=== PATIENT | female | born 1955 | race Caucasian/White ===

== ENCOUNTER → 2016-09-01 | Outpatient (CLI) | payer BC ==
[~2016-09-01] MED LIST: ASPI-435 PO; METO25TA3 PO
[2016-09-01 12:15] LABS: CHOLESTEROL/HDL RATIO 3.6
== END | disposition home or self-care (01) ==
LOC: C.LAB 10:41
PROVIDERS: ATTEND Internal Medicine Cardiovascular Disease
DX: E78.5 Hyperlipidemia, unspecified (principal)

== ENCOUNTER → 2016-11-06 | Outpatient (CLI) | payer BC ==
--- NOTE | 2016-11-06 16:21 | MAMMOGRAPHY REPORT ---
BILATERAL DIGITAL SCREENING MAMMOGRAM WITH CAD: 11/06/2016 CLINICAL HISTORY: Routine screening. Patient has no complaints. TECHNIQUE: Current study was also evaluated with a Computer Aided Detection (CAD) system. Bilateral CC and MLO views were obtained. COMPARISON: Comparison is made to exams dated: 10/22/2015 mammogram, 10/20/2014 mammogram, 10/19/2013 m ammogram, 10/18/2012 mammogram, 10/14/2011 mammogram, and 11/02/2009 mammogram - [facility]. BREAST COMPOSITION: The tissue of both breasts is heterogeneously dense, which may obscure small mas ses. FINDINGS: No suspicious masses, calcifications, or areas of architectural distortion are noted in ei ther breast. There has been no significant interval change compared to prior exams. A biopsy marker clip is again noted in the right medial breast. IMPRESSION: ACR BI-RADS CATEGORY 2: BENIGN There is no mammographic evidence of malignancy. A 1 year screening mammogram is recommended. The pa tient will receive written notification of the results. Approximately 10% of breast cancers are not detected with mammography. A negative mammographic report should not delay biopsy if a clinically suggestive mass is present. Amanda Issa M.D. /:11/06/2016 14:49:52 Car Worker: Haley OROZCOR, M, [facility] letter sent: Normal 1/2 BI-RADS Code: ACR BI-RADS Category 2: Benign
== END | disposition home or self-care (01) ==
LOC: C.MAMM 14:10
PROVIDERS: ATTEND Family Medicine
DX: Z12.31 Encounter for screening mammogram for malignant neoplasm of breast (principal)

== ENCOUNTER → 2017-10-15 | Outpatient (CLI) | payer OTHER ==
[2017-10-15 10:54] LABS: BLOOD UREA NITROGEN 20 mg/dl (7-18); CREATININE 0.87 mg/dl (0.60-1.20); GLUCOSE 93 mg/dl (70-99)
[2017-10-15 10:55] LABS: ALBUMIN 4.3 gm/dl (3.4-5.0); ALKALINE PHOSPHATASE 112 U/L (45-117); ALT/SGPT 39 U/L (12-78); AST/SGOT 21 U/L (15-37); CARBON DIOXIDE 30 mmol/L (21-32); CHOLESTEROL 201 mg/dl (0-200); LDL CHOLESTEROL CALCULATED 126 mg/dl; POTASSIUM 3.8 mmol/L (3.5-5.1); SODIUM 141 mmol/L (136-145); TOTAL PROTEIN 7.9 gm/dl (6.4-8.2)
== END | disposition home or self-care (01) ==
LOC: C.LAB1850 09:41
PROVIDERS: ATTEND Physician Assistant
DX: I49.3 Ventricular premature depolarization (principal); I10 Essential (primary) hypertension; E78.5 Hyperlipidemia, unspecified

== ENCOUNTER 2021-11-15 19:08 | Inpatient (IN) ==
[2021-11-15 19:43] LABS: Basophils # (auto) 0.08 K/uL (0-0.2); Basophils % (auto) 0.7 %; Eosinophils # (auto) 0.08 K/uL (0-0.50); Eosinophils % (auto) 0.7 %; Hematocrit (blood only) 46.7 % (34.1-44.9); Hemoglobin 15.2 g/dl (12.0-16.0); Immature Granulocytes # (auto) 0.03 K/uL (0.00-0.02); Immature Granulocytes % (auto) 0.2 %; Lymphocytes # (auto) 1.53 K/uL (1.2-3.4); Lymphocytes % (auto) 12.6 %; Mean Corpuscular Hemoglobin 29.6 pg (25.0-34.0); Mean Corpuscular Hgb Conc 32.5 g/dL (32.0-36.0); Mean Corpuscular Volume 90.9 fL (80.0-100.0); Mean Platelet Volume 10.3 fL (9.4-12.3); Monocytes # (auto) 0.84 K/uL (0.24-0.82); Monocytes % (auto) 6.9 %; Neutrophils # (auto) 9.57 K/uL (1.4-6.5); Neutrophils % (auto) 78.9 %; Platelet Count 586 K/uL (130-400); RDW Coefficient of Variation 13.3 % (11.5-14.5); RDW Standard Deviation 44.4 fL (36.4-46.3); Red Blood Count 5.14 M/uL (3.93-5.22); White Blood Count 12.13 K/ul (4.8-10.8)
[2021-11-15 20:04] LABS: BUN Creatinine Ratio 25.6 (10-20); Creatinine Clr Calc Pharmacy 67.1 ml/min; Est GFR (African American) 90.5 ml/min; Est GFR (Non-African American) 78.1 ml/min; Potassium 4.3 mmol/L (3.5-5.1)
[2021-11-15 20:24] LABS: Appearance Urine Cloudy (Clear); Bacteria Urine Automated Negative (Negative); Bilirubin Urine Negative (Negative); Blood Urine Trace (Negative); Cast Urine Automated 0 /lpf (0-5); Color Urine Yellow; Epithelial Cell Urine Auto 0-5 /lpf (0-5); Glucose Urine UA Negative (Negative); Ketones Urine Negative (Negative); Leukocyte Esterase Urine Negative (Negative); Nitrite Urine Negative (Negative); Protein Urine Negative (Negative); Specific Gravity Urine 1.016 (1.000-1.030); Urobilinogen Urine Negative (Negative)
[2021-11-15] MEDS ORDERED: SODIUM CHLORIDE 0.9% 1000ML 1,000 ML IV ONE (20:35)
--- NOTE | 2021-11-15 20:43 | Emergency Department Note ---
History of Present Illness General Chief complaint: Abdominal Pain Stated complaint: ABDOMINAL PAIN Time Seen by Provider: 11/15/21 20:20 Source: patient Mode of arrival: ambulatory Limitations: no limitations History of Present Illness Maximum Pain Intensity: 6 This patient is a 58-year-old female who comes in saying she is pretty sure is having a gallbladder attack. She had an episode like this in September 2020 and had gallbladder sludge. She had an episode again last week and had 1 today around 3:00 she is feeling better she has pain in her right upper quadrant it hurts if she moves no pleurisy no chest pain or shortness of breath no trauma or injury she has some associated nausea. No fever. No rash. Diet Home Medications Medication Instructions Recorded Confirmed Type aspirin 81 mg chewable tablet 81 mg PO DAILY 11/16/21 11/16/21 History cholecalciferol (vitamin D3) 50 50 mcg PO DAILY 11/16/21 11/16/21 History mcg (2,000 unit) tablet (Vitamin D3) hydrochlorothiazide 12.5 mg capsule 12.5 mg PO Q OTHER DAY 11/16/21 11/16/21 History ibandronate 150 mg tablet 150 mg PO MO 11/16/21 11/16/21 History lisinopril 2.5 mg tablet 2.5 mg PO DAILY 11/16/21 11/16/21 History metoprolol succinate 25 mg 37.5 mg PO DAILY 11/16/21 11/16/21 History tablet,extended release 24 hr multivitamin 1 tab PO DAILY 11/16/21 11/16/21 History Allergies Allergy/AdvReac Type Severity Reaction Status Date / Time No Known Allergies Allergy Unverified 11/16/21 00:19 Past Med/Surg History Social History Smoking Status: Never smoker Preferred Language: Uzbek Feels Safe at Home: Yes Immunizations: Past med history Hypertension Allergiesdairy. No known drug allergies. Social historydoes not smoke or drink or use drugs Review of Systems A total of 10 systems reviewed and were otherwise negative Physical Exam Vital Signs Vital Signs - 24 hr 11/15/21 19:18 11/15/21 20:18 11/15/21 23:00 Temperature 36.5 C Temperature Source Temporal Artery Scan Pulse Rate 74 Pulse Rate [Apical] 70 60 Pulse Rhythm [Apical] Regular Respiratory Rate 18 17 15 Respiratory Depth Normal Blood Pressure 181/97 H Blood Pressure [Right Arm] 168/101 H 155/98 H Blood Pressure Mean 125 Blood Pressure Mean [Right Arm] 123 117 Pulse Oximetry 99 97 97 Oxygen Delivery Method Room Air Room Air Sepsis New/Unexplained Change in Mental Status N/A Sepsis Action Taken by Nursing No Action Required 11/16/21 00:38 Temperature Temperature Source Pulse Rate Pulse Rate [Apical] 66 Pulse Rhythm [Apical] Regular Respiratory Rate 16 Respiratory Depth Normal Blood Pressure Blood Pressure [Right Arm] 165/100 H Blood Pressure Mean Blood Pressure Mean [Right Arm] 121 Pulse Oximetry 98 Oxygen Delivery Method Room Air Sepsis New/Unexplained Change in Mental Status Sepsis Action Taken by Nursing General: Well developed well nourished middle aged female who appears in no acute distress, breathing comfortably on room air. Normal speech HEENT: Normal cephalic atraumatic. Pupils are equal round and reactive to light. Extraocular movements are intact. Oropharynx is pink with moist mucous membranes. No swelling of the mouth lips or tongue. Neck: Supple with a midline trachea. No meningeal signs or stiffness, no JVD or bruits. No Stridor. Chest: Clear to auscultation bilaterally. No wheezes or rhonchi. No increased work of breathing. Heart: Regular rate and rhythm without murmurs or gallops. Abdomen: Soft nontender, nondistended without rebound guarding or rigidity. Extremities: No cyanosis clubbing or edema. No calf tenderness or assymetry Spine/Back. Non tender to palpation. No CVA tenderness Skin: Good turgor without rashes. Neurologic exam: Cranial nerves two through 12 are intact. Motor and sensation are intact and symmetrical throughout. Course Administered Medications Discontinued Medications Sodium Chloride (Nss 1000ml) 1,000 mls @ 999 mls/hr IV .Q1H1M ONE Stop: 11/15/21 21:35 Last Infusion: 11/15/21 22:24 Dose: 0 mls/hr Documented By: Admin: 11/15/21 20:46 Dose: 999 mls/hr Documented By: TABATHA Piperacillin Sod/Tazobactam Sod (Zosyn) 4.5 gm in 120 mls @ 240 mls/hr IV NOW ONE Stop: 11/15/21 23:44 Last Infusion: 11/16/21 00:19 Dose: 0 mls/hr Documented By: Admin: 11/15/21 23:40 Dose: 240 mls/hr Documented By: TABATHA Lisinopril (Lisinopril 2.5 Mg Tab) 2.5 mg PO ONE STA Stop: 11/15/21 23:41 Last Admin: 11/16/21 00:38 Dose: 2.5 mg Documented By: TABATHA Medical Decision Making Differential Diagnosis Acute cholecystitis, gallstones, pancreatitis, electrolyte or metabolic abnormality, infection, cardiac disease Medical Records Attestation: I reviewed the patient's medical records. Home Medications Current Medication List: was personally reviewed by me Laboratory Data Attestation: I reviewed the patient's lab results. Result diagrams: 11/15/21 19:35 11/15/21 19:35 Lab Results 11/15/21 11/15/21 11/15/21 Range/Units 19:35 19:35 19:36 WBC 12.13 H (4.8-10.8) K/ul RBC 5.14 (3.93-5.22) M/uL Hgb 15.2 (12.0-16.0) g/dl Hct 46.7 H (34.1-44.9) % MCV 90.9 (80.0-100.0) fL MCH 29.6 (25.0-34.0) pg MCHC 32.5 (32.0-36.0) g/dL RDW Std Deviation 44.4 (36.4-46.3) fL RDW Coeff of Robert 13.3 (11.5-14.5) % Plt Count 586 H (130-400) K/uL MPV 10.3 (9.4-12.3) fL Immature Gran % (Auto) 0.2 % Neut % (Auto) 78.9 % Lymph % (Auto) 12.6 % Forrest % (Auto) 6.9 % Eos % (Auto) 0.7 % Baso % (Auto) 0.7 % Neut # (Auto) 9.57 H (1.4-6.5) K/uL Lymph # (Auto) 1.53 (1.2-3.4) K/uL Forrest # (Auto) 0.84 H (0.24-0.82) K/uL Eos # (Auto) 0.08 (0-0.50) K/uL Baso # (Auto) 0.08 (0-0.2) K/uL Immature Gran # (Auto) 0.03 H (0.00-0.02) K/uL Sodium 137 (136-145) mmol/L Potassium 4.3 (3.5-5.1) mmol/L Chloride 101 (98-107) mmol/L Carbon Dioxide 29 (21-32) mmol/L Anion Gap 7 (3-11) BUN 20 (6-23) mg/dl Creatinine 0.78 (0.6-1.2) mg/dl Est Cr Clr Drug Dosing 67.1 ml/min Est GFR ( Amer) 90.5 ml/min Est GFR (Non-Af Amer) 78.1 ml/min BUN/Creatinine Ratio 25.6 H (10-20) Glucose 95 (70-99(Fasting)) mg/dl Calcium 10.0 (8.5-10.1) mg/dl Total Bilirubin 1.6 H (0.2-1.0) mg/dl AST 96 H (13-39) U/L ALT 103 H (7-52) U/L Alkaline Phosphatase 110 H (34-104) U/L Total Protein 7.4 (6.0-8.3) gm/dl Albumin 4.8 (3.4-5.0) gm/dl Globulin 2.6 (2.5-4.0) gm/dl Albumin/Globulin Ratio 1.8 (0.9-2) Lipase 2138 H (11-82) U/L Urine Color Yellow Urine Appearance Cloudy A (Clear) Urine pH 8.0 H (4.5-7.5) Ur Specific [place] 1.016 (1.000-1.030) Urine Protein Negative (Negative) Urine Glucose (UA) Negative (Negative) Urine Ketones Negative (Negative) Urine Blood Trace H (Negative) Urine Nitrite Negative (Negative) Urine Bilirubin Negative (Negative) Urine Urobilinogen Negative (Negative) Ur Leukocyte Esterase Negative (Negative) Urine WBC (Auto) 1-5 (0-5) /hpf Urine RBC (Auto) 5-10 H (0-4) /hpf U Hyaline Cast (Auto) 0 (0-5) /lpf U Epithel Cells (Auto) 0-5 (0-5) /lpf Urine Bacteria (Auto) Negative (Negative) SARS-CoV-2, RNA, NAAT (NEGATIVE) 11/15/21 Range/Units 23:42 WBC (4.8-10.8) K/ul RBC (3.93-5.22) M/uL Hgb (12.0-16.0) g/dl Hct (34.1-44.9) % MCV (80.0-100.0) fL MCH (25.0-34.0) pg MCHC (32.0-36.0) g/dL RDW Std Deviation (36.4-46.3) fL RDW Coeff of Robert (11.5-14.5) % Plt Count (130-400) K/uL MPV (9.4-12.3) fL Immature Gran % (Auto) % Neut % (Auto) % Lymph % (Auto) % Forrest % (Auto) % Eos % (Auto) % Baso % (Auto) % Neut # (Auto) (1.4-6.5) K/uL Lymph # (Auto) (1.2-3.4) K/uL [place] # (Auto) (0.24-0.82) K/uL Eos # (Auto) (0-0.50) K/uL Baso # (Auto) (0-0.2) K/uL Immature Gran # (Auto) (0.00-0.02) K/uL Sodium (136-145) mmol/L Potassium (3.5-5.1) mmol/L Chloride (98-107) mmol/L Carbon Dioxide (21-32) mmol/L Anion Gap (3-11) BUN (6-23) mg/dl Creatinine (0.6-1.2) mg/dl Est Cr Clr Drug Dosing ml/min Est GFR ( Amer) ml/min Est GFR (Non-Af Amer) ml/min BUN/Creatinine Ratio (10-20) Glucose (70-99(Fasting)) mg/dl Calcium (8.5-10.1) mg/dl Total Bilirubin (0.2-1.0) mg/dl AST (13-39) U/L ALT (7-52) U/L Alkaline Phosphatase (34-104) U/L Total Protein (6.0-8.3) gm/dl Albumin (3.4-5.0) gm/dl Globulin (2.5-4.0) gm/dl Albumin/Globulin Ratio (0.9-2) Lipase (11-82) U/L Urine Color Urine Appearance (Clear) Urine pH (4.5-7.5) Ur Specific [place] (1.000-1.030) Urine Protein (Negative) Urine Glucose (UA) (Negative) Urine Ketones (Negative) Urine Blood (Negative) Urine Nitrite (Negative) Urine Bilirubin (Negative) Urine Urobilinogen (Negative) Ur Leukocyte Esterase (Negative) Urine WBC (Auto) (0-5) /hpf Urine RBC (Auto) (0-4) /hpf U Hyaline Cast (Auto) (0-5) /lpf U Epithel Cells (Auto) (0-5) /lpf Urine Bacteria (Auto) (Negative) SARS-CoV-2, RNA, NAAT NEGATIVE (NEGATIVE) Imaging Data Attestation: I personally reviewed and interpreted this imaging study as follows: Radiologist's Impression: Gallbladder Ultrasound 11/15/21 20:35 ULTRASOUND RIGHT UPPER QUADRANT ABDOMEN CLINICAL HISTORY: Right upper quadrant abdominal pain. COMPARISON STUDY: No priors. TECHNIQUE: Real-time, grayscale, and color flow sonography of the right upper quadrant of the abdomen was performed. Images are reviewed in the transverse and longitudinal planes. FINDINGS: Liver: The liver is normal in size and echotexture. There is no intrahepatic biliary ductal dilatation. The main portal vein is patent. Gallbladder: The gallbladder is distended and contains numerous small shadowing gallstones. The gallbladder wall is mildly thickened and edematous measuring up to 4 mm in diameter. No pericholecystic fluid is seen. A sonographic Millan's s ign is reportedly absent. The common bile duct measures up to 0.7 cm in diameter. Pancreas: Visualized portions of the pancreatic head and body are normal in appearance. The splenic vein is patent. Right kidney: Survey images of the right kidney demonstrate normal size and echotexture. There is no hydronephrosis. Subcentimeter cysts are incidentally noted. Ascites: None. IMPRESSION: 1. The gallbladder is distended. The gallbladder wall is mildly thickened and edematous and there are numerous gallstones. A sonographic Millan's sign is reportedly absent, and findings are equivocal for acute cholecystitis which is not excluded. Correlate with clinical and laboratory findings. If there are strong clinical concern for acute cholecystitis a nuclear hepatobiliary scan could be considered for further assessment. 2. The common bile duct is top normal in caliber for age measuring up to 7 mm. 3. No intrahepatic biliary duct dilatation is seen. ACT 112: Negative or not required by law. Electronically signed by: Tristen Beckwith M.D. 11/15/2021 9:38 PM ECG Data Attestation: I personally reviewed and interpreted this ECG as follows: Indication: + abdominal pain Rate (beats per minute): 76 Rhythm: + normal sinus ECG Intervals/blocks: + Normal QRS, + Normal QT and + Normal VT ECG [place]: + Normal ECG ST segments: + Normal ST segments ECG Findings: + PACs Comparison ECG Date: no prior available MDM Narrative This patient is a 66-year-old female who comes in with right upper quadrant pain she is feeling better she has a history of having similar episodes in the past was diagnosed with sludge in her gallbladder. IV access was established, white count mildly elevated however. she has no fever. She is only mildly tender. EKG does not suggest ischemic changes or cardiac disease or ectopy. She was reassessed frequently.she was kept n.p.o. she was hydrated normal saline. she declined any pain and nausea medicine. LFTs are mildly elevated but her lipase is also elevated she has an ultrasound which shows dilation of the gallbladder wall with some stones but negative Millan sign. I did discuss case with Dr. Betancourt who is a surgeon on-call he does not feel she needs acute surgery tonight but agrees with started on antibiotics I gave her Zosyn 4.5 g IV and medicine will admit her she may need MRCP or GI work-up prior as well. She has remained stable and looks well. COVID testing was negative. Impression & Plan Pancreatitis, Abdominal pain, Acute cholecystitis, Lab test negative for COVID- 19 virus Discharge Plan Visit Data Chief Complaint: Abdominal Pain Stated Complaint: ABDOMINAL PAIN ED Provider: Mohsen Shelby Discharge Problem: Pancreatitis, Abdominal pain, Acute cholecystitis, Lab test negative for COVID- 19 virus Forms Stand Alone Forms: My [facility] [place] Prescriptions Prescriptions: No Action hydrochlorothiazide 12.5 mg capsule 12.5 mg PO Q OTHER DAY aspirin [Baby Aspirin] 81 mg Tablet,Chewable 81 mg PO DAILY metoprolol succinate 25 mg tablet extended release 24 hr 37.5 mg PO DAILY Rx Instructions: Take 1 & 1/2 tab lisinopril 2.5 mg tablet 2.5 mg PO DAILY ibandronate 150 mg tablet 150 mg PO MO Rx Instructions: Take with 8 oz water, 1 hr before 1st meal, remain upright for 60 min. cholecalciferol (vitamin D3) [Vitamin D3] 50 mcg (2,000 unit) Tablet 50 mcg PO DAILY multivitamin Tablet 1 tab PO DAILY Referrals Referrals: Susan Trinidad PA-C [Primary Care Provider] - : Pancreatitis Qualifiers: Chronicity: acute Pancreatitis type: biliary Acute pancreatitis complication: unspecified Qualified Code(s): K85.10 - Biliary acute pancreatitis without necrosis or infection Abdominal pain Qualifiers: Abdominal location: epigastric Qualified Code(s): R10.13 - Epigastric pain
[2021-11-15 20:53] LABS: Albumin Globulin Ratio 1.8 (0.9-2); Albumin Level 4.8 gm/dl (3.4-5.0); Bilirubin,Total 1.6 mg/dl (0.2-1.0); Globulin 2.6 gm/dl (2.5-4.0); Total Protein 7.4 gm/dl (6.0-8.3)
--- NOTE | 2021-11-15 21:41 | Ultrasound Report ---
ULTRASOUND RIGHT UPPER QUADRANT ABDOMEN CLINICAL HISTORY: Right upper quadrant abdominal pain. COMPARISON STUDY: No priors. TECHNIQUE: Real-time, grayscale, and color flow sonography of the right upper quadrant of the abdomen was performed. Images are reviewed in the transverse and longitudinal planes. FINDINGS: Liver: The liver is normal in size and echotexture. There is no intrahepatic biliary ductal dilatatio n. The main portal vein is patent. Gallbladder: The gallbladder is distended and contains numerous small shadowing gallstones. The gallb ladder wall is mildly thickened and edematous measuring up to 4 mm in diameter. No pericholecystic fl uid is seen. A sonographic Millan's sign is reportedly absent. The common bile duct measures up to 0. 7 cm in diameter. Pancreas: Visualized portions of the pancreatic head and body are normal in appearance. The splenic v ein is patent. Right kidney: Survey images of the right kidney demonstrate normal size and echotexture. There is no hydronephrosis. Subcentimeter cysts are incidentally noted. Ascites: None. IMPRESSION: 1. The gallbladder is distended. The gallbladder wall is mildly thickened and edematous and there are numerous gallstones. A sonographic Millan's sign is reportedly absent, and findings are equivocal fo r acute cholecystitis which is not excluded. Correlate with clinical and laboratory findings. If ther e are strong clinical concern for acute cholecystitis a nuclear hepatobiliary scan could be considere d for further assessment. 2. The common bile duct is top normal in caliber for age measuring up to 7 mm. 3. No intrahepatic biliary duct dilatation is seen. ACT 112: Negative or not required by law. Electronically signed by: Tristen Beckwith M.D. 11/15/2021 9:38 PM
[2021-11-15] MEDS ORDERED: PIPERACILLIN/TAZOBACTAM 4.5 GM/120 ML BAG IV ONE (23:15)
[2021-11-15] MEDS ORDERED: LACTATED RINGER'S 1,000 ML IV STA (23:39)
[2021-11-15] MEDS ORDERED: lisinopril 2.5 MG TAB PO STA (23:40)
--- NOTE | 2021-11-16 01:12 | History & Physical Report ---
Date of Service November 16, 2021 Assessment & Plan (1) Gallstone pancreatitis: Plan: Possible cholecystitis Possible choledocholithiasis given abnormal LFTs No sepsis for now chronic systolic heart failure (EF 45 to 49% on outpatient stress echo 2015 ), patient on the dry side hypertension, elevated secondary discomfort hx ventricular ectopic beats GMF Bowel rest, gentle IV hydration given history cardiomyopathy MRCP Re: Abnormal LFTs GI consult Re: Gallstone pancreatitis, abnormal LFTs Zosyn for possible cholecystitis General Surgery consultation Re: Possible cholecystitis (ER provider already in touch with Dr. Betancourt.) Titrate home BP meds DVT prophylaxis. Lovenox subcu Full code Text document was generated using [employer] voice recognition software. It may contain grammatical or spelling errors. Kindly contact undersigned for clarification of any documentation item in question. History of Present Illness Chief Complaint: Abdominal pain Primary Care Provider: Susan Trinidad PA-C History obtained from patient and records. Medical history significant for chronic systolic heart failure (EF 45 to 49% on outpatient stress echo 2015 ), hypertension, hyperlipidemia, ventricular ectopic beats, cholelithiasis. Patient experience intense right upper quadrant pain last September 2020. Outpatient right upper quadrant ultrasound showed 1. Gallbladder sludge and tiny stones without evidence of acute cholecystitis or choledocholithiasis. 2. Hepatic steatosis. 3. Probable subcentimeter right renal cyst. Surgery consultation recommended by outpatient provider. Last week, patient had recurrence of abdominal pain with nausea symptoms without fever, chills. She went to [facility] ER but left waiting room after she noticed relief of discomfort. Abdominal pain recurred yesterday afternoon with nausea, no emesis. No fever, no chills. No chest pain, no shortness of breath. Zosyn administered at the ER. 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 Allergies Allergy/AdvReac Type Severity Reaction Status Date / Time No Known Allergies Allergy Unverified 11/16/21 00:19 Home Medications Medication Instructions Recorded Confirmed Type aspirin 81 mg chewable tablet 81 mg PO DAILY 11/16/21 11/16/21 History cholecalciferol (vitamin D3) 50 50 mcg PO DAILY 11/16/21 11/16/21 History mcg (2,000 unit) tablet (Vitamin D3) hydrochlorothiazide 12.5 mg capsule 12.5 mg PO Q OTHER DAY 11/16/21 11/16/21 History ibandronate 150 mg tablet 150 mg PO MO 11/16/21 11/16/21 History lisinopril 2.5 mg tablet 2.5 mg PO DAILY 11/16/21 11/16/21 History metoprolol succinate 25 mg 37.5 mg PO DAILY 11/16/21 11/16/21 History tablet,extended release 24 hr multivitamin 1 tab PO DAILY 11/16/21 11/16/21 History Past Med/Surg History Social History Smoking Status: Never smoker Hx Alcohol Use: No Hx Substance Use: No Preferred Language: Norwegian Communication Ability: Effective Pouncing Lathe Operator Required: No Beliefs That Will Affect Care: None Current Living Situation: Spouse Feels Safe at Home: Yes Safety Concerns: Feels Safe At This Time Review of Systems Review of Systems: As per HPI, all other systems reviewed and negative Physical Exam Physical Exam: GENERAL: Comfortable, pleasant, no respiratory distress SKIN: Normal color, warm HEENT: [place]pect[place]led, [place] palpebral conjunctivae, no ptosis, dry buccal mucosa NECK : Supple, no tenderness CHEST : CTA, no tenderness HEART : RRR, no obvious murmurs ABDOMEN: Some distention, minimal right upper quadrant tenderness EXTREMITIES : No LE swelling/tenderness, no other conspicuous deformities noted NEUROLOGIC : Coherent, no facial asymmetry, no other gross focality Results & Data Results & Data ([facility]) Vital Signs (Past 12 Hours) Vital Signs Temp Pulse Pulse Resp BP BP Pulse Ox 11/16/21 00:38 66 16 165/100 H 98 11/15/21 23:00 60 15 155/98 H 97 11/15/21 20:18 70 17 168/101 H 97 11/15/21 19:18 36.5 C 74 18 181/97 H 99 O2 Del Method 11/16/21 00:38 Room Air 11/15/21 23:00 11/15/21 20:18 Room Air 11/15/21 19:18 Room Air Laboratory Results Laboratory Results WBC 12.13 K/ul (4.8-10.8) H 11/15/21 19:35 RBC 5.14 M/uL (3.93-5.22) 11/15/21 19:35 Hgb 15.2 g/dl (12.0-16.0) 11/15/21 19:35 Hct 46.7 % (34.1-44.9) H 11/15/21 19:35 MCV 90.9 fL (80.0-100.0) 11/15/21 19:35 MCH 29.6 pg (25.0-34.0) 11/15/21 19:35 MCHC 32.5 g/dL (32.0-36.0) 11/15/21 19:35 RDW Std Deviation 44.4 fL (36.4-46.3) 11/15/21 19:35 RDW Coeff of Robert 13.3 % (11.5-14.5) 11/15/21 19:35 Plt Count 586 K/uL (130-400) H 11/15/21 19:35 MPV 10.3 fL (9.4-12.3) 11/15/21 19:35 Immature Gran % (Auto) 0.2 % 11/15/21 19:35 Neut % (Auto) 78.9 % 11/15/21 19:35 Lymph % (Auto) 12.6 % 11/15/21 19:35 [place] % (Auto) 6.9 % 11/15/21 19:35 Eos % (Auto) 0.7 % 11/15/21 19:35 Baso % (Auto) 0.7 % 11/15/21 19:35 Neut # (Auto) 9.57 K/uL (1.4-6.5) H 11/15/21 19:35 Lymph # (Auto) 1.53 K/uL (1.2-3.4) 11/15/21 19:35 [place] # (Auto) 0.84 K/uL (0.24-0.82) H 11/15/21 19:35 Eos # (Auto) 0.08 K/uL (0-0.50) 11/15/21 19:35 Baso # (Auto) 0.08 K/uL (0-0.2) 11/15/21 19:35 Immature Gran # (Auto) 0.03 K/uL (0.00-0.02) H 11/15/21 19:35 Sodium 137 mmol/L (136-145) 11/15/21 19:35 Potassium 4.3 mmol/L (3.5-5.1) 11/15/21 19:35 Chloride 101 mmol/L (98-107) 11/15/21 19:35 Carbon Dioxide 29 mmol/L (21-32) 11/15/21 19:35 Anion Gap 7 (3-11) 11/15/21 19:35 BUN 20 mg/dl (6-23) 11/15/21 19:35 Creatinine 0.78 mg/dl (0.6-1.2) 11/15/21 19:35 Est Cr Clr Drug Dosing 67.1 ml/min 11/15/21 19:35 Est GFR ( Amer) 90.5 ml/min 11/15/21 19:35 Est GFR (Non-Af Amer) 78.1 ml/min 11/15/21 19:35 BUN/Creatinine Ratio 25.6 (10-20) H 11/15/21 19:35 Glucose 95 mg/dl (70-99(Fasting)) 11/15/21 19:35 Calcium 10.0 mg/dl (8.5-10.1) 11/15/21 19:35 Total Bilirubin 1.6 mg/dl (0.2-1.0) H 11/15/21 19:35 AST 96 U/L (13-39) H 11/15/21 19:35 ALT 103 U/L (7-52) H 11/15/21 19:35 Alkaline Phosphatase 110 U/L (34-104) H 11/15/21 19:35 Total Protein 7.4 gm/dl (6.0-8.3) 11/15/21 19:35 Albumin 4.8 gm/dl (3.4-5.0) 11/15/21 19:35 Globulin 2.6 gm/dl (2.5-4.0) 11/15/21 19:35 Albumin/Globulin Ratio 1.8 (0.9-2) 11/15/21 19:35 Lipase 2138 U/L (11-82) H 11/15/21 19:35 Urine Color Yellow 11/15/21 19:36 Urine Appearance Cloudy (Clear) A 11/15/21 19:36 Urine pH 8.0 (4.5-7.5) H 11/15/21 19:36 Ur Specific [place] 1.016 (1.000-1.030) 11/15/21 19:36 Urine Protein Negative (Negative) 11/15/21 19:36 Urine Glucose (UA) Negative (Negative) 11/15/21 19:36 Urine Ketones Negative (Negative) 11/15/21 19:36 Urine Blood Trace (Negative) H 11/15/21 19:36 Urine Nitrite Negative (Negative) 11/15/21 19:36 Urine Bilirubin Negative (Negative) 11/15/21 19:36 Urine Urobilinogen Negative (Negative) 11/15/21 19:36 Ur Leukocyte Esterase Negative (Negative) 11/15/21 19:36 Urine WBC (Auto) 1-5 /hpf (0-5) 11/15/21 19:36 Urine RBC (Auto) 5-10 /hpf (0-4) H 11/15/21 19:36 U Hyaline Cast (Auto) 0 /lpf (0-5) 11/15/21 19:36 U Epithel Cells (Auto) 0-5 /lpf (0-5) 11/15/21 19:36 Urine Bacteria (Auto) Negative (Negative) 11/15/21 19:36 SARS-CoV-2, RNA, NAAT NEGATIVE (NEGATIVE) 11/15/21 23:42 Impressions Gallbladder Ultrasound 11/15/21 20:35 ULTRASOUND RIGHT UPPER QUADRANT ABDOMEN CLINICAL HISTORY: Right upper quadrant abdominal pain. COMPARISON STUDY: No priors. TECHNIQUE: Real-time, grayscale, and color flow sonography of the right upper quadrant of the abdomen was performed. Images are reviewed in the transverse and longitudinal planes. FINDINGS: Liver: The liver is normal in size and echotexture. There is no intrahepatic biliary ductal dilatation. The main portal vein is patent. Gallbladder: The gallbladder is distended and contains numerous small shadowing gallstones. The gallbladder wall is mildly thickened and edematous measuring up to 4 mm in diameter. No pericholecystic fluid is seen. A sonographic Millan's si gn is reportedly absent. The common bile duct measures up to 0.7 cm in diameter. Pancreas: Visualized portions of the pancreatic head and body are normal in appearance. The splenic vein is patent. Right kidney: Survey images of the right kidney demonstrate normal size and echotexture. There is no hydronephrosis. Subcentimeter cysts are incidentally noted. Ascites: None. IMPRESSION: 1. The gallbladder is distended. The gallbladder wall is mildly thickened and edematous and there are numerous gallstones. A sonographic Millan's sign is reportedly absent, and findings are equivocal for acute cholecystitis which is not excluded. Correlate with clinical and laboratory findings. If there are strong clinical concern for acute cholecystitis a nuclear hepatobiliary scan could be considered for further assessment. 2. The common bile duct is top normal in caliber for age measuring up to 7 mm. 3. No intrahepatic biliary duct dilatation is seen. ACT 112: Negative or not required by law. Electronically signed by: Tristen Beckiwth M.D. 11/15/2021 9:38 PM Diagnostic Findings EKG as per my interpretation : Rate 75, NSR, normal axis, T wave abnormality septal leads
[2021-11-16] MEDS ORDERED: ACETAMINOPHEN 325 MG TAB PO PRN (01:17)
[2021-11-16] MEDS ORDERED: MoRPHine SULFATE 2 MG/ML CARP IV PRN (01:17)
[2021-11-16] MEDS ORDERED: LORazepam 0.5 MG TAB PO PRN (01:17)
[2021-11-16] MEDS ORDERED: traMADol HCL 50 MG TABLET PO PRN (01:17)
[2021-11-16] MEDS ORDERED: PROMETHAZINE HCL 6.25 MG in SODIUM CHLORIDE 0.9% 50 ML IV PRN (01:17)
[2021-11-16] MEDS: LACTATED RINGER'S 1,000 ML IV SCH ×3 (04:25→22:01)
[2021-11-16] MEDS: PIPERACILLIN/TAZOBACTAM 3.375 GM in DEXTROSE 5% 100 ML IV SCH ×3 (05:34→22:00)
[2021-11-16 07:23] LABS: Basophils # (auto) 0.07 K/uL (0-0.2); Basophils % (auto) 0.7 %; Eosinophils # (auto) 0.18 K/uL (0-0.50); Eosinophils % (auto) 1.8 %; Hematocrit (blood only) 43.5 % (34.1-44.9); Hemoglobin 14.2 g/dl (12.0-16.0); Immature Granulocytes # (auto) 0.02 K/uL (0.00-0.02); Immature Granulocytes % (auto) 0.2 %; Lymphocytes # (auto) 1.49 K/uL (1.2-3.4); Lymphocytes % (auto) 15.3 %; Mean Corpuscular Hemoglobin 29.5 pg (25.0-34.0); Mean Corpuscular Hgb Conc 32.6 g/dL (32.0-36.0); Mean Corpuscular Volume 90.2 fL (80.0-100.0); Mean Platelet Volume 10.3 fL (9.4-12.3); Monocytes # (auto) 0.65 K/uL (0.24-0.82); Monocytes % (auto) 6.7 %; Neutrophils # (auto) 7.35 K/uL (1.4-6.5); Neutrophils % (auto) 75.3 %; Platelet Count 535 K/uL (130-400); RDW Coefficient of Variation 13.3 % (11.5-14.5); RDW Standard Deviation 44.2 fL (36.4-46.3); Red Blood Count 4.82 M/uL (3.93-5.22); White Blood Count 9.76 K/ul (4.8-10.8)
[2021-11-16 07:39] LABS: Albumin Globulin Ratio 1.9 (0.9-2); Albumin Level 4.3 gm/dl (3.4-5.0); BUN Creatinine Ratio 16.7 (10-20); Bilirubin,Total 1.9 mg/dl (0.2-1.0); Calcium 9.5 mg/dl (8.5-10.1); Creatinine Clr Calc Pharmacy 66.9 ml/min; Est GFR (African American) 90.5 ml/min; Est GFR (Non-African American) 78.1 ml/min; Globulin 2.3 gm/dl (2.5-4.0); Potassium 4.1 mmol/L (3.5-5.1); Total Protein 6.6 gm/dl (6.0-8.3)
[2021-11-16] MEDS: ENOXAPARIN INJ 40 MG/0.4 ML SYR SQ SCH (07:40)
[2021-11-16] MEDS: METOPROLOL SUCC 25MG EXT REL TAB PO SCH (07:40)
[2021-11-16] MEDS: MULTIVITAMIN TAB PO SCH (07:40)
[2021-11-16] MEDS: lisinopril 5 MG TAB PO SCH (07:40)
--- NOTE | 2021-11-16 08:49 | Electrocardiogram Report ---
Test Reason : Blood Pressure : / mmHG Vent. Rate : 076 BPM Atrial Rate : 076 BPM P-R Int : 128 ms QRS Dur : 094 ms QT Int : 388 ms P-R-T Axes : 050 033 064 degrees QTc Int : 436 ms Sinus rhythm with Premature atrial complexes Otherwise normal ECG No previous ECGs available Confirmed by James Ordoñez ([id number]) on 11/16/2021 8:49:26 AM Referred By: REFERRED SELF Confirmed By:James Ordoñez
--- NOTE | 2021-11-16 11:28 | Magnetic Resonance Report ---
MR MRCP HISTORY: 66 years-old Female abn lfts elevated LFTs COMPARISON: Bladder ultrasound 11/15/2021 TECHNIQUE: MRCP was obtained without the use of IV contrast. FINDINGS: Motion degraded exam. Cardiomegaly noted on the instructional technology teacher localizer images. Indeterminate foci involving the L3 and L4 vertebral bodies, possibly quality audit representative of hemangiomata. levoscoliosis with multilevel degenerative changes. T2 hyperintense foci within the left hemipelvis m easures 2.8 cm suggestive of ovarian cysts. Study is motion degraded. No bowel obstruction or bowel w all thickening identified. Indeterminate 1.2 cm lesion within the superior pole left kidney demonstra rogerio intermediate to slightly decreased T2 signal. There are a few probable cyst in the right kidney w hich are subcentimeter in size. There are a few scattered subcentimeter T2 hyperintense foci of the p ancreas measuring up to 5 mm suggestive of probable sidebranch IPMN's. No pancreatic ductal dilation. Indeterminate 6 mm mildly T2 hyperintense focus of the right hepatic lobe, image 14 series 5. The co mmon bile duct is normal measuring 7 mm. No choledocholithiasis identified. Gallbladder wall thickeni ng with distention is redemonstrated along with layering cholelithiasis and mild pericholecystic jenise a. IMPRESSION: 1. Motion degraded exam. 2. Cholelithiasis with gallbladder distention, wall thickening and pericholecystic edema is suspiciou s for acute cholecystitis. 3. No biliary ductal dilation or choledocholithiasis identified. 4. Indeterminate 1.2 cm lesion of the superior pole left kidney. This could be correlated with a foll ow-up ultrasound. ACT 112: Negative or not required by law. The above report was generated using voice recognition software. It may contain grammatical, syntax o r spelling errors. Electronically signed by: Myles Willis M.D. 11/16/2021 11:26 AM
--- NOTE | 2021-11-16 11:35 | Surgery Consultation ---
Date of Consultation November 16, 2021 Assessment & Plan (1) Gallstone pancreatitis: see below (2) Acute cholecystitis: pt is a 66 year-old female who was admitted to hospital for abdominal pain, IMP: acute cholecystitis, cholelithiasis, gallstone pancreatitis, CBD stone ? base on T bili 1.9, pt may need ERCP, once lipase close normal, I will schedule pt to do laparoscopic cholecystectomy on this admission, continue iv antibiotic, control pain, repeat labs in morning, will F/U, pt agrees with the plan, I answered all questions, History of Present Illness Reason for Consultation: cholelithiasis Requesting Physician: Jose De Jesus Salmeron MD Attending Physician: Jose De Jesus Salmeron MD History of Present Illness History of Present Illness Chief Complaint: Abdominal pain Primary Care Provider: Susan Trinidad PA-C History obtained from patient and records. Medical history significant for chronic systolic heart failure (EF 45 to 49% on outpatient stress echo 2015 ), hypertension, hyperlipidemia, ventricular ectopic beats, cholelithiasis. Patient experience intense right upper quadrant pain last September 2020. Outpatient right upper quadrant ultrasound showed 1. Gallbladder sludge and tiny stones without evidence of acute cholecystitis or choledocholithiasis. 2. Hepatic steatosis. 3. Probable subcentimeter right renal cyst. Surgery consultation recommended by outpatient provider. Last week, patient had recurrence of abdominal pain with nausea symptoms without fever, chills. She went to [facility] ER but left waiting room after she noticed relief of discomfort. Abdominal pain recurred yesterday afternoon with nausea, no emesis. No fever, no chills. No chest pain, no shortness of breath. Zosyn administered at the ER. 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 Allergies Allergy/AdvReac Type Severity Reaction Status Date / Time No Known Allergies Allergy Unverified 11/16/21 00:19 Home Medications Medication Instructions Recorded Confirmed Type aspirin 81 mg chewable tablet 81 mg PO DAILY 11/16/21 11/16/21 H istory cholecalciferol (vitamin D3) 50 50 mcg PO DAILY 11/16/21 11/16/21 History mcg (2,000 unit) tablet (Vitamin D3) hydrochlorothiazide 12.5 mg capsule 12.5 mg PO Q OTHER DAY 11/16/21 0 11/16/21 History ibandronate 150 mg tablet 150 mg PO MO 11/16/21 11/16/21 Histo ry lisinopril 2.5 mg tablet 2.5 mg PO DAILY 11/16/21 11/16/21 Histor y metoprolol succinate 25 mg 37.5 mg PO DAILY 11/16/21 11/16/21 Hist ory tablet,extended release 24 hr multivitamin 1 tab PO DAILY 11/16/21 11/16/21 History Past Med/Surg History Social History Smoking Status: Never smoker Hx Alcohol Use: No Hx Substance Use: No Preferred Language: Tajik Communication Ability: Effective Research Laboratory Specialist Required: No Beliefs That Will Affect Care: None Current Living Situation: Spouse Feels Safe at Home: Yes Safety Concerns: Feels Safe At This Time Review of Systems Review of Systems: As per HPI, all other systems reviewed and negative Allergies Allergy/AdvReac Type Severity Reaction Status Date / Time No Known Allergies Allergy Unverified 11/16/21 00:19 Home Medications Medication Instructions Recorded Confirmed Type aspirin 81 mg chewable tablet 81 mg PO DAILY 11/16/21 11/16/21 History cholecalciferol (vitamin D3) 50 50 mcg PO DAILY 11/16/21 11/16/21 History mcg (2,000 unit) tablet (Vitamin D3) hydrochlorothiazide 12.5 mg capsule 12.5 mg PO Q OTHER DAY 11/16/21 11/16/21 History ibandronate 150 mg tablet 150 mg PO MO 11/16/21 11/16/21 History lisinopril 2.5 mg tablet 2.5 mg PO DAILY 11/16/21 11/16/21 History metoprolol succinate 25 mg 37.5 mg PO DAILY 11/16/21 11/16/21 History tablet,extended release 24 hr multivitamin 1 tab PO DAILY 11/16/21 11/16/21 History Patient History Social History Smoking Status: Never smoker Hx Alcohol Use: No Hx Substance Use: No Preferred Language: Tajik Communication Ability: Effective Research Laboratory Specialist Required: No Beliefs That Will Affect Care: None Current Living Situation: Spouse Feels Safe at Home: Yes Safety Concerns: Feels Safe At This Time Physical Exam Constitutional: WD/WN, vitals as above Eyes: PERRL, conjunctivae normal, anicteric sclerae Neck: trachea midline, no thyromegaly Respiratory: normal respiratory effort, lungs clear to auscultation Cardiovascular: RRR, no murmur, no edema Gastrointestinal (Abdomen): soft, mi;d tenderness at RUQ, no rebound pain, no distend, BS +, Musculoskeletal: no cyanosis or clubbing, extremities motor strength 5/5 Neurologic: patellar DTR's 2+ bilat, sensation intact Psychiatric: A+Ox3, euthymic affect Results & Data ([facility]) Vital Signs (Past 12 Hours) Vital Signs Temp Pulse Pulse Resp BP Pulse Ox O2 Del Method 11/16/21 08:00 Room Air 11/16/21 04:00 36.8 C 62 16 163/98 H 97 Room Air 11/16/21 02:00 62 16 155/92 H 95 Room Air 11/16/21 00:38 66 16 165/100 H 98 Room Air Laboratory Results Abnormal lab results 11/15/21 11/15/21 11/15/21 Range/Units 19:35 19:35 19:36 WBC 12.13 H (4.8-10.8) K/ul Hct 46.7 H (34.1-44.9) % Plt Count 586 H (130-400) K/uL Neut # (Auto) 9.57 H (1.4-6.5) K/uL [place] # (Auto) 0.84 H (0.24-0.82) K/uL Immature Gran # (Auto) 0.03 H (0.00-0.02) K/uL BUN/Creatinine Ratio 25.6 H (10-20) Total Bilirubin 1.6 H (0.2-1.0) mg/dl AST 96 H (13-39) U/L ALT 103 H (7-52) U/L Alkaline Phosphatase 110 H (34-104) U/L Globulin (2.5-4.0) gm/dl Lipase 2138 H (11-82) U/L Urine Appearance Cloudy A (Clear) Urine pH 8.0 H (4.5-7.5) Urine Blood Trace H (Negative) Urine RBC (Auto) 5-10 H (0-4) /hpf 11/16/21 11/16/21 Range/Units 06:34 06:34 WBC (4.8-10.8) K/ul Hct (34.1-44.9) % Plt Count 535 H (130-400) K/uL Neut # (Auto) 7.35 H (1.4-6.5) K/uL [place] # (Auto) (0.24-0.82) K/uL Immature Gran # (Auto) (0.00-0.02) K/uL BUN/Creatinine Ratio (10-20) Total Bilirubin 1.9 H (0.2-1.0) mg/dl AST 58 H (13-39) U/L ALT 90 H (7-52) U/L Alkaline Phosphatase (34-104) U/L Globulin 2.3 L (2.5-4.0) gm/dl Lipase (11-82) U/L Urine Appearance (Clear) Urine pH (4.5-7.5) Urine Blood (Negative) Urine RBC (Auto) (0-4) /hpf Diagnostic Findings MR MRCP HISTORY: 66 years-old Female abn lfts elevated LFTs COMPARISON: Bladder ultrasound 11/15/2021 TECHNIQUE: MRCP was obtained without the use of IV contrast. FINDINGS: Motion degraded exam. Cardiomegaly noted on the canary raiser localizer images. Indeterminate foci involving the L3 and L4 vertebral bodies, possibly customer assistance representative of hemangiomata. levoscoliosis with multilevel degenerative changes. T2 hyperintense foci within the left hemipelvis measures 2.8 cm suggestive of ovarian cysts. Study is motion degraded. No bowel obstruction or bowel wall thickening identified. Indeterminate 1.2 cm lesion within the superior pole left kidney demonstrates intermediate to slightly decreased T2 signal. There are a few probable cyst in the right kidney which are subcentimeter in size. There are a few scattered subcentimeter T2 hyperintense foci of the pancreas measuring up to 5 mm suggestive of probable sidebranch IPMN's. No pancreatic ductal dilation. Indeterminate 6 mm mildly T2 hyperintense focus of the right hepatic lobe, image 14 series 5. The common bile duct is normal measuring 7 mm. No choledocholit hiasis identified. Gallbladder wall thickening with distention is redemonstrated along with layering cholelithiasis and mild pericholecystic edema. IMPRESSION: 1. Motion degraded exam. 2. Cholelithiasis with gallbladder distention, wall thickening and pericholecystic edema is suspicious for acute cholecystitis. 3. No biliary ductal dilation or choledocholithiasis identified. 4. Indeterminate 1.2 cm lesion of the superior pole left kidney. This could be correlated with a follow-up ultrasound. ULTRASOUND RIGHT UPPER QUADRANT ABDOMEN CLINICAL HISTORY: Right upper quadrant abdominal pain. COMPARISON STUDY: No priors. TECHNIQUE: Real-time, grayscale, and color flow sonography of the right upper quadrant of the abdomen was performed. Images are reviewed in the transverse and longitudinal planes. FINDINGS: Liver: The liver is normal in size and echotexture. There is no intrahepatic biliary ductal dilatation. The main portal vein is patent. Gallbladder: The gallbladder is distended and contains numerous small shadowing gallstones. The gallbladder wall is mildly thickened and edematous measuring up to 4 mm in diameter. No pericholecystic fluid is seen. A sonographic Millan's sign is reportedly absent. The common bile duct measures up to 0.7 cm in diameter. Pancreas: Visualized portions of the pancreatic head and body are normal in appearance. The splenic vein is patent. Right kidney: Survey images of the right kidney demonstrate normal size and echotexture. There is no hydronephrosis. Subcentimeter cysts are incidentally noted. Ascites: None. IMPRESSION: 1. The gallbladder is distended. The gallbladder wall is mildly thickened and edematous and there are numerous gallstones. A sonographic Millan's sign is reportedly absent, and findings are equivocal for acute cholecystitis which is not excluded. Correlate with clinical and laboratory findings. If there are strong clinical concern for acute cholecystitis a nuclear hepatobiliary scan could be considered for further assessment. 2. The common bile duct is top normal in caliber for age measuring up to 7 mm. 3. No intrahepatic biliary duct dilatation is seen. ACT 112: Negative or not required by law.
--- NOTE | 2021-11-16 14:02 | Hospitalist Progress Note ---
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 Abdominal pain recurred in the afternoon of the day of arrival with nausea/no emesis and hence patient presented to the ED. She is being managed for the following: Gallstone pancreatitis Acute cholecystitis Patient presents with recurrent abdominal pain, RUQ tender at admission. No sepsis POA. Admitting bilirubin and lipase elevated. Admitting gallbladder ultrasound: Cholelithiasis noted, findings equivocal for acute cholecystitis changes. CBD diameter normal in caliber. Admitting MRCP: Suggestive of acute cholecystitis. Cholelithiasis with GB distention noted. 1.2 cm lesion of superior pole left kidney, follow-up ultrasound recommended. Abdominal pain improving, minimal RUQ tenderness on exam. No nausea or vomiting. General surgery evaluated, plan for lap kameron this admission Continue with IV antibiotic 11/16/pain management and nausea control. Other chronic medical conditions: CHF [EF 45 to 49%], HTN, ventricular ectopic beats --->> continue with/resume home meds as and when appropriate. Blood pressure slightly elevated likely secondary to acute illness, continue to monitor. Prn HTN meds. DVT prophylaxis. Lovenox subcu Full code Admission and Anticipated Discharge Date Admission Date: November 16, 2021 Subjective Patient seen and examined at bedside as a follow-up of gallstone pancreatitis and possible acute cholecystitis. Patient was lying in bed, on room air, NAD, no new acute events overnight, patient n.p.o., reports improvement in belly pain, denies nausea/he adache/dizziness/chest pain/sore throat/cough/fever/other review of symptoms. Physical Exam Physical Exam: GENERAL: Alert and oriented x3. NAD, on RA. HEENT: No pallor, no icterus. Pupils equal, round and reactive to light. Oral mucosa moist. NECK: No JVD, no neck masses. HEART: S1 and S2 heard. Regular rate and rhythm. No murmur, no gallop. RESPIRATORY SYSTEM: Normal AP diameter. No accessory muscle use. No wheezing, no crackles. ABDOMEN: Soft, bowel sounds present, mild RUQ tender, no distention. CENTRAL NERVOUS SYSTEM: No facial droop. Speech is clear. Obeys simple commands. Moves extremities. EXTREMITIES: No edema, no erythema seen. Results & Data Results & Data ([facility]) Vital Signs (Past 12 Hours) Vital Signs Temp Pulse Pulse Resp BP Pulse Ox O2 Del Method 11/16/21 08:00 Room Air 11/16/21 04:00 36.8 C 62 16 163/98 H 97 Room Air 11/16/21 02:00 62 16 155/92 H 95 Room Air
[2021-11-16] MEDS ORDERED: hydrALAZINE HCL 25 MG TAB PO PRN (14:23)
[2021-11-17] MEDS: PIPERACILLIN/TAZOBACTAM 3.375 GM in DEXTROSE 5% 100 ML IV SCH ×3 (05:52→22:04)
[2021-11-17] MEDS: MULTIVITAMIN TAB PO SCH (07:26)
[2021-11-17] MEDS: ENOXAPARIN INJ 40 MG/0.4 ML SYR SQ SCH (07:27)
[2021-11-17] MEDS: METOPROLOL SUCC 25MG EXT REL TAB PO SCH (07:27)
[2021-11-17] MEDS: lisinopril 5 MG TAB PO SCH (07:27)
[2021-11-17] MEDS: LACTATED RINGER'S 1,000 ML IV SCH (07:28)
[2021-11-17 08:04] LABS: Hematocrit (blood only) 41.6 % (34.1-44.9); Hemoglobin 13.8 g/dl (12.0-16.0); Mean Corpuscular Hemoglobin 29.8 pg (25.0-34.0); Mean Corpuscular Hgb Conc 33.2 g/dL (32.0-36.0); Mean Corpuscular Volume 89.8 fL (80.0-100.0); Mean Platelet Volume 10.4 fL (9.4-12.3); Platelet Count 447 K/uL (130-400); RDW Coefficient of Variation 13.2 % (11.5-14.5); RDW Standard Deviation 43.7 fL (36.4-46.3); Red Blood Count 4.63 M/uL (3.93-5.22)
[2021-11-17 08:29] LABS: Albumin Globulin Ratio 1.8 (0.9-2); BUN Creatinine Ratio 12.4 (10-20); Bilirubin,Total 2.7 mg/dl (0.2-1.0); Calcium 9.3 mg/dl (8.5-10.1); Creatinine Clr Calc Pharmacy 58.6 ml/min; Est GFR (African American) 77.2 ml/min; Est GFR (Non-African American) 66.6 ml/min; Globulin 2.2 gm/dl (2.5-4.0); Magnesium 1.9 mg/dl (1.7-2.4); Phosphorus 4.1 mg/dl (2.5-4.9); Potassium 4.3 mmol/L (3.5-5.1); Total Protein 6.2 gm/dl (6.0-8.3)
[2021-11-17] MEDS: hydroCHLOROthiazide 25 MG TAB PO SCH (09:46)
--- NOTE | 2021-11-17 10:30 | Surgery Progress Note ---
Date of Service November 17, 2021 Assessment & Plan (1) Gallstone pancreatitis: Plan: see below (2) Acute cholecystitis: Plan: pt is a 66 year-old female who was admitted to hospital for abdominal pain, IMP: acute cholecystitis, cholelithiasis, gallstone pancreatitis, CBD stone ? base on T bili 1.9, pt may need ERCP, once lipase close normal, I will schedule pt to do laparoscopic cholecystectomy on this admission, continue iv antibiotic, control pain, repeat labs in morning, will F/U, pt agrees with the plan, I answered all questions, 11/17/2021, 10:25 AM lipase normal, pancreatitis resolved, T Bili 2.7, most likely CBD stone, pt needs ERCP, if GI can do ERCP tomorrow, I will do laparoscopic cholecystectomy at same time, D/w benefits, risks and alternatives of the surgery, pt understood, she agrees with the plan, I answered all questions, D/w resourcing consultant GI doctor. will F/U Admission and Anticipated Discharge Date Admission Date: November 16, 2021 Subjective Patient seen and examined at bedside as a follow-up of gallstone pancreatitis and possible acute cholecystitis. Patient was lying in bed, on room air, NAD, no new acute events overnight, patient n.p.o., reports improvement in belly pain, denies nausea/headache/dizziness/chest pain/sore throat/cough/fever/other review of symptoms. 11/17/2021 10 : 24AM, Dr. Betancourt pt feels better, no significant abdominal pain, no fever, Physical Exam Constitutional: WD/WN, vitals as above Eyes: PERRL, conjunctivae normal, anicteric sclerae Neck: trachea midline, no thyromegaly Respiratory: normal respiratory effort, lungs clear to auscultation Cardiovascular: RRR, no murmur, no edema Gastrointestinal (Abdomen): soft, NT, ND, BS + Musculoskeletal: no cyanosis or clubbing, extremities motor strength 5/5 Neurologic: patellar DTR's 2+ bilat, sensation intact Psychiatric: A+Ox3, euthymic affect Results & Data ([facility]) Vital Signs (Past 12 Hours) Vital Signs Temp Pulse Resp BP Pulse Ox O2 Del Method 11/17/21 08:00 Room Air 11/17/21 07:30 36.8 C 72 18 156/90 H 98 Room Air 11/17/21 01:55 36.7 C 72 16 151/90 H 95 Room Air Laboratory Results Abnormal lab results 11/17/21 11/17/21 Range/Units 07:15 07:15 Plt Count 447 H (130-400) K/uL Carbon Dioxide 33 H (21-32) mmol/L Anion Gap 2 L (3-11) Total Bilirubin 2.7 H (0.2-1.0) mg/dl ALT 66 H (7-52) U/L Globulin 2.2 L (2.5-4.0) gm/dl
--- NOTE | 2021-11-17 10:45 | Gastrointestinal Consultation ---
Date of Consultation November 17, 2021 Assessment & Plan (1) Gallstone pancreatitis: I think it is reasonable to proceed with preoperative ERCP. I have discussed procedure and risks for ERCP with her, including the risks of bleeding, perforation, cholangitis and pancreatitis. She understands and agrees to proceed. I have discussed with Dr. Barker who will arrange this. Present on Admission?: Yes History of Present Illness Reason for Consultation: ERCP Attending Physician: Jose De Jesus Salmeron MD History of Present Illness 66 year old female admitted with suspected gallstone pancreatitis. LFT's elevated on admit, some resolving bilirubin rising. MRCP negative but with rising bilirubin we are asked to do preop ERCP. She feels well now, all of her pain is gone. Had similar episode last week that resolved. No major surgeries in the past. Last colonoscopy three years ago. Allergies Allergy/AdvReac Type Severity Reaction Status Date / Time No Known Allergies Allergy Unverified 11/16/21 00:19 Home Medications Medication Instructions Recorded Confirmed Type aspirin 81 mg chewable tablet 81 mg PO DAILY 11/16/21 11/16/21 History cholecalciferol (vitamin D3) 50 50 mcg PO DAILY 11/16/21 11/16/21 History mcg (2,000 unit) tablet (Vitamin D3) hydrochlorothiazide 12.5 mg capsule 12.5 mg PO Q OTHER DAY 11/16/21 11/16/21 History ibandronate 150 mg tablet 150 mg PO MO 11/16/21 11/16/21 History lisinopril 2.5 mg tablet 2.5 mg PO DAILY 11/16/21 11/16/21 History metoprolol succinate 25 mg 37.5 mg PO DAILY 11/16/21 11/16/21 History tablet,extended release 24 hr multivitamin 1 tab PO DAILY 11/16/21 11/16/21 History Patient History Social History Smoking Status: Never smoker Hx Alcohol Use: No Hx Substance Use: No Preferred Language: Ukrainian Communication Ability: Effective 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 Beliefs That Will Affect Care: None Current Living Situation: Spouse Feels Safe at Home: Yes Safety Concerns: Feels Safe At This Time Review of Systems Review of Systems: All systems reviewed & are unremarkable except as noted in HPI & below Physical Exam Constitutional: WD/WN, vitals as above no acute distress Eyes: PERRL, conjunctivae normal, anicteric sclerae ENMT: external ear and nose normal, oropharynx normal Neck: trachea midline, no thyromegaly Respiratory: normal respiratory effort, lungs clear to auscultation Cardiovascular: RRR, no murmur, no edema Gastrointestinal (Abdomen): normal bowel sounds, soft, nontender, no hepatosplenomegaly Musculoskeletal: Extremities: no cyanosis and no clubbing Skin: no rashes, warm and dry Neurologic: PERRL, EOMI, accommodation nl, no face palsy, no dysarthria Psychiatric: Orientation: alert and oriented x 3 Results & Data ([facility]) Vital Signs (Past 12 Hours) Vital Signs Temp Pulse Resp BP Pulse Ox O2 Del Method 11/17/21 08:00 Room Air 11/17/21 07:30 36.8 C 72 18 156/90 H 98 Room Air 11/17/21 01:55 36.7 C 72 16 151/90 H 95 Room Air Laboratory Results 11/17/21 11/17/21 Range/Units 07:15 07:15 WBC 6.40 (4.8-10.8) K/ul RBC 4.63 (3.93-5.22) M/uL Hgb 13.8 (12.0-16.0) g/dl Hct 41.6 (34.1-44.9) % MCV 89.8 (80.0-100.0) fL MCH 29.8 (25.0-34.0) pg MCHC 33.2 (32.0-36.0) g/dL RDW Std Deviation 43.7 (36.4-46.3) fL RDW Coeff of Robert 13.2 (11.5-14.5) % Plt Count 447 H (130-400) K/uL MPV 10.4 (9.4-12.3) fL Sodium 139 (136-145) mmol/L Potassium 4.3 (3.5-5.1) mmol/L Chloride 104 (98-107) mmol/L Carbon Dioxide 33 H (21-32) mmol/L Anion Gap 2 L (3-11) BUN 11 (6-23) mg/dl Creatinine 0.89 (0.6-1.2) mg/dl Est Cr Clr Drug Dosing 58.6 ml/min Est GFR ( Amer) 77.2 ml/min Est GFR (Non-Af Amer) 66.6 ml/min BUN/Creatinine Ratio 12.4 (10-20) Glucose 79 (70-99(Fasting)) mg/dl Calcium 9.3 (8.5-10.1) mg/dl Phosphorus 4.1 (2.5-4.9) mg/dl Magnesium 1.9 (1.7-2.4) mg/dl Total Bilirubin 2.7 H (0.2-1.0) mg/dl AST 32 (13-39) U/L ALT 66 H (7-52) U/L Alkaline Phosphatase 85 (34-104) U/L Total Protein 6.2 (6.0-8.3) gm/dl Albumin 4.0 (3.4-5.0) gm/dl Globulin 2.2 L (2.5-4.0) gm/dl Albumin/Globulin Ratio 1.8 (0.9-2) Lipase 61 (11-82) U/L Diagnostic Findings Gallbladder Ultrasound 11/15/21 20:35 ULTRASOUND RIGHT UPPER QUADRANT ABDOMEN CLINICAL HISTORY: Right upper quadrant abdominal pain. COMPARISON STUDY: No priors. TECHNIQUE: Real-time, grayscale, and color flow sonography of the right upper quadrant of the abdomen was performed. Images are reviewed in the transverse and longitudinal planes. FINDINGS: Liver: The liver is normal in size and echotexture. There is no intrahepatic biliary ductal dilatation. The main portal vein is patent. Gallbladder: The gallbladder is distended and contains numerous small shadowing gallstones. The gallbladder wall is mildly thickened and edematous measuring up to 4 mm in diameter. No pericholecystic fluid is seen. A sonographic Millan's sign is reportedly absent. The common bile duct measures up to 0.7 cm in diameter. Pancreas: Visualized portions of the pancreatic head and body are normal in appearance. The splenic vein is patent. Right kidney: Survey images of the right kidney demonstrate normal size and echotexture. There is no hydronephrosis. Subcentimeter cysts are incidentally noted. Ascites: None. IMPRESSION: 1. The gallbladder is distended. The gallbladder wall is mildly thickened and edematous and there are numerous gallstones. A sonographic Millan's sign is reportedly absent, and findings are equivocal for acute cholecystitis which is not excluded. Correlate with clinical and laboratory findings. If there are strong clinical concern for acute cholecystitis a nuclear hepatobiliary scan could be considered for further assessment. 2. The common bile duct is top normal in caliber for age measuring up to 7 mm. 3. No intrahepatic biliary duct dilatation is seen. ACT 112: Negative or not required by law. Electronically signed by: Tristen Beckwith M.D. 11/15/2021 9:38 PM Cholangiopancreatography MRI 11/16/21 01:16 MR MRCP HISTORY: 66 years-old Female abn lfts elevated LFTs COMPARISON: Bladder ultrasound 11/15/2021 TECHNIQUE: MRCP was obtained without the use of IV contrast. FINDINGS: Motion degraded exam. Cardiomegaly noted on the hub lead localizer images. Indeterminate foci involving the L3 and L4 vertebral bodies, possibly patient financial representative of hemangiomata. levoscoliosis with multilevel degenerative changes. T2 hyperintense foci within the left hemipelvis measures 2.8 cm suggestive of ovarian cysts. Study is motion degraded. No bowel obstruction or bowel wall thickening identified. Ind eterminate 1.2 cm lesion within the superior pole left kidney demonstrates intermediate to slightly decreased T2 signal. There are a few probable cyst in the right kidney which are subcentimeter in size. There are a few scattered subcentimeter T2 hyperintense foci of the pancreas measuring up to 5 mm suggestive of probable sidebranch IPMN's. No pancreatic ductal dilation. Indeterminate 6 mm mildly T2 hyperintense focus of the right hepatic lobe, image 14 series 5. The common bile duct is normal measuring 7 mm. No choledocholithiasis identified. Gallbladder wall thickening with distention is redemonstrated along with layering cholelithiasis and mild pericholecystic edema. IMPRESSION: 1. Motion degraded exam. 2. Cholelithiasis with gallbladder distention, wall thickening and pericholecyst ic edema is suspicious for acute cholecystitis. 3. No biliary ductal dilation or choledocholithiasis identified. 4. Indeterminate 1.2 cm lesion of the superior pole left kidney. This could be correlated with a follow-up ultrasound. ACT 112: Negative or not required by law. The above report was generated using voice recognition software. It may contain grammatical, syntax or spelling errors. Electronically signed by: Myles Willis M.D. 11/16/2021 11:26 AM
--- NOTE | 2021-11-17 16:03 | Hospitalist Progress Note ---
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 She is being managed for the following: Gallstone pancreatitis Acute cholecystitis Patient presents with recurrent abdominal pain, RUQ tender at admission. No sepsis POA. Admitting bilirubin and lipase elevated. Admitting gallbladder ultrasound: Cholelithiasis noted, findings equivocal for acute cholecystitis changes. CBD diameter normal in caliber. Admitting MRCP: Suggestive of acute cholecystitis. Cholelithiasis with GB distention noted. 1.2 cm lesion of superior pole left kidney, follow-up ultrasound recommended. Abdominal pain improving. No nausea or vomiting. General surgery evaluated, plan for ERCP by GI and lap kameron by general surgery tomorrow Continue with IV antibiotic 11/16/pain management and nausea control. N.p.o. midnight. Other chronic medical conditions: CHF [EF 45 to 49%], HTN, ventricular ectopic beats --->> continue with/resume home meds as and when appropriate. Blood pressure slightly elevated likely secondary to acute illness, continue to monitor. Prn HTN meds. DVT prophylaxis. Lovenox subcu Full code Admission and Anticipated Discharge Date Admission Date: November 16, 2021 Subjective Patient seen and examined at bedside as a follow-up of gallstone pancreatitis and possible acute cholecystitis. Patient was lying in bed, on room air, NAD, no new acute events overnight, on clear liquid diet, tentative plan for surgery tomorrow, n.p.o. midnight, reports no belly pain, denies nausea/headache/dizziness/chest pain/sore throat/cough/fever/other review of symptoms. Physical Exam Physical Exam: GENERAL: Alert and oriented x3. NAD, on RA. HEENT: No pallor, no icterus. Pupils equal, round and reactive to light. Oral mucosa moist. NECK: No JVD, no neck masses. HEART: S1 and S2 heard. Regular rate and rhythm. No murmur, no gallop. RESPIRATORY SYSTEM: Normal AP diameter. No accessory muscle use. No wheezing, no crackles. ABDOMEN: Soft, bowel sounds present, no RUQ tender, no distention. CENTRAL NERVOUS SYSTEM: No facial droop. Speech is clear. Obeys simple commands. Moves extremities. EXTREMITIES: No edema, no erythema seen. Results & Data Results & Data ([facility]) Vital Signs (Past 12 Hours) Vital Signs Temp Pulse Resp BP Pulse Ox O2 Del Method 11/17/21 14:46 36.6 C 66 18 150/90 H 97 Room Air 11/17/21 08:00 Room Air 11/17/21 07:30 36.8 C 72 18 156/90 H 98 Room Air
[2021-11-18] MEDS: PIPERACILLIN/TAZOBACTAM 3.375 GM in DEXTROSE 5% 100 ML IV SCH ×4 (06:15→22:14)
[2021-11-18 07:59] LABS: BUN Creatinine Ratio 11.8 (10-20); Calcium 9.6 mg/dl (8.5-10.1); Creatinine Clr Calc Pharmacy 61.4 ml/min; Est GFR (African American) 81.6 ml/min; Est GFR (Non-African American) 70.4 ml/min; Magnesium 1.9 mg/dl (1.7-2.4); Potassium 3.5 mmol/L (3.5-5.1)
[2021-11-18] MEDS: METOPROLOL SUCC 25MG EXT REL TAB PO SCH (08:28)
--- NOTE | 2021-11-18 09:35 | Gastroenterology Progress Note ---
Date of Service November 18, 2021 Assessment & Plan (1) Gallstone pancreatitis: Plan: Patient is a 66 years old female admitted for suspected gallstone pancreatitis. Currently doing fairly well, afebrile overnight, LFTs yesterday improved. We will add on LFTs to today's labs. She is scheduled for cholecystectomy in the OR today. We will plan for ERCP tomorrow. Please keep her n.p.o. after midnight, continue IV antibiotics. Admission and Anticipated Discharge Date Admission Date: November 16, 2021 Supervising Physician Co-Signing Physician Notes Patient was seen and examined on 11/18 with KATERINA Acuña whose note reflects our findings and plan. Subjective Patient denies any chest pain, shortness of breath, nausea, vomiting, abdominal pain Review of Systems Review of Systems: All systems reviewed & are unremarkable except as noted in HPI & below Physical Exam Constitutional: WD/WN, vitals as above well groomed, cooperative and comfortable Eyes: PERRL, conjunctivae normal, anicteric sclerae ENMT: external ear and nose normal, oropharynx normal Respiratory: normal respiratory effort, lungs clear to auscultation Cardiovascular: RRR, no murmur, no edema Gastrointestinal (Abdomen): normal bowel sounds, soft, nontender, no hepatosplenomegaly Skin: no rashes, warm and dry no jaundice Psychiatric: A+Ox3, euthymic affect Lymphatic: no lymphedema Results & Data ([facility]) Vital Signs (Past 12 Hours) Vital Signs Temp Pulse Resp BP Pulse Ox O2 Del Method 11/18/21 07:35 36.5 C 65 18 164/92 H 99 Room Air
[2021-11-18 10:33] LABS: Albumin Level 4.3 gm/dl (3.4-5.0); Bilirubin Direct 0.4 mg/dl (0-0.2); Bilirubin,Total 2.9 mg/dl (0.2-1.0); Total Protein 7.1 gm/dl (6.0-8.3)
[2021-11-18] MEDS ORDERED: NEOSTIGMINE METHYLSULFATE 1 MG/ML 10ML VIAL ONE ×2 (12:45→14:09)
[2021-11-18] MEDS ORDERED: ONDANSETRON INJ 2 MG/ML 2 ML VIAL ONE (12:45)
[2021-11-18] MEDS ORDERED: MIDAZOLAM HCL 1 MG/ML 2ML VIAL ONE (12:45)
[2021-11-18] MEDS ORDERED: ROCURONIUM BROMIDE 10 MG/ML 5 ML VIAL IV ONE ×3 (12:45→14:09)
[2021-11-18] MEDS ORDERED: fentaNYL citrate 100 MCG/2 ML VIAL ONE ×2 (12:45→13:47)
[2021-11-18] MEDS ORDERED: GLYCOPYRROLATE 0.2 MG/ML VIAL ONE (12:45)
[2021-11-18] MEDS ORDERED: PROPOFOL IV EMULSION 10 MG/ML 20 ML VIAL IV ONE (12:45)
[2021-11-18] MEDS ORDERED: KETOROLAC 30 MG/ML VIAL ONE (12:45)
[2021-11-18] MEDS ORDERED: LIDOCAINE 2% MPF LOCAL 5 ML VIAL INFIL ONE (12:45)
[2021-11-18] MEDS ORDERED: DEXAMETHASONE SOD INJ 4 MG/ML VIAL ONE (12:45)
[2021-11-18] MEDS ORDERED: ceFAZolin 2000MG 2,000 MG/15 ML SYR IV ONE (12:57)
--- NOTE | 2021-11-18 12:57 | History & Physical Bridge Note ---
Date of Service November 18, 2021 History & Physical Bridge Note I have examined the patient, reviewed the History & Physical and in the interval since the performance of the History & Physical I have noted the following changes of clinical significance: no changes noted
[2021-11-18] MEDS ORDERED: ATROPINE SULFATE 0.1 MG/ML 10ML SYR IV PRN (13:00)
[2021-11-18] MEDS ORDERED: PROMETHAZINE HCL 6.25 MG in SODIUM CHLORIDE 0.9% 50 ML IV PRN (13:00)
[2021-11-18] MEDS ORDERED: ePHEDrine sulfate 50 MG/ML AMP IV PRN (13:00)
[2021-11-18] MEDS ORDERED: fentaNYL citrate 100 MCG/2 ML VIAL IV PRN (13:00)
[2021-11-18] MEDS ORDERED: ONDANSETRON INJ 2 MG/ML 2 ML VIAL IV PRN (13:00)
--- NOTE | 2021-11-18 13:00 | Anesthesiology Consultation ---
Date of Service November 18, 2021 Assessment & Plan Chart Review Chart Review: Acceptable Risk for Surgery and Patient NOT seen in Pre Admission Testing Consults Requested none ASA ASA2 Proposed Anesthesia Anesthesia Type: General Risk / Benefits Reviewed With: PT / POA / Parent / Guardian, Accepts Plan and Informed Consent Obtained History Surgery Operation Date: 11/18/21 07:55 Proposed Procedures p Laparoscopic Cholecystectomy - Donny Betancourt MD Operation Date: 11/19/21 07:00 Proposed Procedures p Endoscopic Retrograde Cholangiopancreatogram - Corrine Barker MD Height/Weight Height: 5 ft 7 in Weight: 61.4 kg Allergies Allergy/AdvReac Type Severity Reaction Status Date / Time No Known Allergies Allergy Unverified 11/16/21 00:19 Medications Home Medications Medication Instructions Recorded Confirmed Last Taken aspirin 81 mg chewable tablet 81 mg PO DAILY 11/16/21 11/16/21 Unknown cholecalciferol (vitamin D3) 50 50 mcg PO DAILY 11/16/21 11/16/21 Unknown mcg (2,000 unit) tablet (Vitamin D3) hydrochlorothiazide 12.5 mg capsule 12.5 mg PO Q OTHER DAY 11/16/21 11/16/21 Unk nown ibandronate 150 mg tablet 150 mg PO MO 11/16/21 11/16/21 Unknown lisinopril 2.5 mg tablet 2.5 mg PO DAILY 11/16/21 11/16/21 Unknown metoprolol succinate 25 mg 37.5 mg PO DAILY 11/16/21 11/16/21 Unknown tablet,extended release 24 hr multivitamin 1 tab PO DAILY 11/16/21 11/16/21 Unknown Active Medications Generic Name Dose Route Start Last Admin Trade Name Abdiazizq PRN Reason Stop Dose Admin Enoxaparin Sodium 40 mg 11/16/21 09:00 11/17/21 07:27 Enoxaparin Inj 40 Mg/0.4 Ml Syr SQ 12/16/21 08:59 40 mg QAM MINDY Administration Hydrochlorothiazide 12.5 mg 11/17/21 09:00 11/17/21 09:46 Hydrochlorothiazide 25 Mg Tab PO 12/17/21 08:59 12.5 mg Q48H MINDY Administration Piperacillin Sod/Tazobactam 115 mls @ 28.75 mls/hr 11/16/21 06:00 11/18/21 10:23 Sod 3.375 gm/ Dextrose IV 11/26/21 05:59 Infused Q8H MINDY Infusion Protocol Lisinopril 5 mg 11/16/21 09:00 11/17/21 07:27 Lisinopril 5 Mg Tab PO 12/16/21 08:59 5 mg DAILY MINDY Administration Metoprolol Succinate 25 mg 11/16/21 09:00 11/18/21 08:28 Metoprolol Succ 25mg Ext Rel Tab PO 12/16/21 08:59 25 mg DAILY MINDY Administration Multivitamins 1 tab 11/16/21 09:00 11/17/21 07:26 Multivitamin Tab PO 12/16/21 08:59 1 tab QAM MINDY Administration NPO Date Last Intake of Fluids: 11/17/21 Time Last Intake of Fluids: 18:00 Date Last Intake of Solids: 11/15/21 Time Last Intake of Solids: 12:00 Exercise / Class Metabolic Activity II 4-5 Yardwork/Stairs/Walk up hill Past Anesthesia History No Hx of Anesthesia Complications and No Family Hx of Anesthesia Complications History of PONV No Hx of PONV and No Hx of Motion Sickness Social History Smoking Status: Never smoker Hx Alcohol Use: No Hx Substance Use: No Physical Exam Vital Signs Last Vital Signs Temp 37.1 C 11/18/21 12:28 Pulse 77 11/18/21 12:28 Resp 20 11/18/21 12:28 BP 154/94 H 11/18/21 12:28 Pulse Ox 100 11/18/21 12:28 O2 Del Method 11/18/21 12:28 ENMT Mouth: no dentition abnormality Thyromental Distance: > or= 3.5 Finger Breadths Mallampati Class: II Neck normal visual inspection Respiratory normal respiratory effort Auscultation: lungs clear to auscultation bilaterally Cardiovascular Rate/Rhythm: regular rate and regular rhythm Psychiatric Orientation: alert Testing Laboratory Results 11/17/21 07:15 11/18/21 06:22 Urine Color Yellow 11/15/21 19:36 Urine Appearance Cloudy (Clear) A 11/15/21 19:36 Urine pH 8.0 (4.5-7.5) H 11/15/21 19:36 Ur Specific [place] 1.016 (1.000-1.030) 11/15/21 19:36 Urine Protein Negative (Negative) 11/15/21 19:36 Urine Glucose (UA) Negative (Negative) 11/15/21 19:36 Urine Ketones Negative (Negative) 11/15/21 19:36 Urine Nitrite Negative (Negative) 11/15/21 19:36 Ur Leukocyte Esterase Negative (Negative) 11/15/21 19:36 Urine WBC (Auto) 1-5 /hpf (0-5) 11/15/21 19:36 Urine RBC (Auto) 5-10 /hpf (0-4) H 11/15/21 19:36 U Hyaline Cast (Auto) 0 /lpf (0-5) 11/15/21 19:36 U Epithel Cells (Auto) 0-5 /lpf (0-5) 11/15/21 19:36 Urine Bacteria (Auto) Negative (Negative) 11/15/21 19:36
[2021-11-18] MEDS ORDERED: BUPIVACAINE 0.5 % 5 MG/1 ML MPF 30ML VIAL ONE (13:12)
[2021-11-18] MEDS ORDERED: BACITRACIN OINT 15 GM TUBE ONE (13:12)
[2021-11-18] MEDS ORDERED: LIDOCAINE 1% LOCAL 20 ML VIAL ONE (13:13)
[2021-11-18] MEDS ORDERED: LABETALOL HCL IV 5 MG/ML 20ML IV ONE (13:56)
--- NOTE | 2021-11-18 14:23 | Hospitalist Progress Note ---
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 Abdominal pain recurred in the afternoon of the day of arrival with nausea/no emesis and hence patient presented to the ED. She is being managed for the following: Gallstone pancreatitis Acute cholecystitis Patient presents with recurrent abdominal pain, RUQ tender at admission. No sepsis POA. Admitting bilirubin and lipase elevated. Admitting gallbladder ultrasound: Cholelithiasis noted, findings equivocal for acute cholecystitis changes. CBD diameter normal in caliber. Admitting MRCP: Suggestive of acute cholecystitis. Cholelithiasis with GB distention noted. 1.2 cm lesion of superior pole left kidney, follow-up ultrasound recommended. Abdominal pain improving. No nausea or vomiting. Plan: Plan for ERCP by GI and lap kameron by general surgery today. Continue with IV antibiotic for now. Pain management and nausea control. Other chronic medical conditions: CHF [EF 45 to 49%], HTN, ventricular ectopic beats --->> continue with/resume home meds as and when appropriate. Blood pressure slightly elevated likely secondary to acute illness, continue to monitor. Prn HTN meds. DVT prophylaxis. Lovenox subcu Full code Admission and Anticipated Discharge Date Admission Date: November 16, 2021 Subjective Patient seen and examined at bedside. She is comfortable; not in any distress. No complaint of abdominal pain, nausea or vomiting. She is looking forward to the procedure. Review of Systems Review of Systems: All systems reviewed & are unremarkable except as noted in Subjective Physical Exam Physical Exam: GENERAL: Alert and oriented x3. NAD, on RA. HEENT: No pallor, no icterus. Pupils equal, round and reactive to light. Oral mucosa moist. NECK: No JVD, no neck masses. HEART: S1 and S2 heard. Regular rate and rhythm. No murmur, no gallop. RESPIRATORY SYSTEM: Normal AP diameter. No accessory muscle use. No wheezing, no crackles. ABDOMEN: Soft, bowel sounds present, no RUQ tender, no distention. CENTRAL NERVOUS SYSTEM: No facial droop. Speech is clear. Obeys simple commands. Moves extremities. EXTREMITIES: No edema, no erythema seen. Results & Data Results & Data ([facility]) Vital Signs (Past 12 Hours) Vital Signs Temp Pulse Resp BP BP Pulse Ox O2 Del Method 11/18/21 12:28 37.1 C 77 20 154/94 H 100 Room Air 11/18/21 07:35 36.5 C 65 18 164/92 H 99 Room Air Laboratory Results Laboratory Results WBC 6.40 K/ul (4.8-10.8) 11/17/21 07:15 RBC 4.63 M/uL (3.93-5.22) 11/17/21 07:15 Hgb 13.8 g/dl (12.0-16.0) 11/17/21 07:15 Hct 41.6 % (34.1-44.9) 11/17/21 07:15 MCV 89.8 fL (80.0-100.0) 11/17/21 07:15 MCH 29.8 pg (25.0-34.0) 11/17/21 07:15 MCHC 33.2 g/dL (32.0-36.0) 11/17/21 07:15 RDW Std Deviation 43.7 fL (36.4-46.3) 11/17/21 07:15 RDW Coeff of Robert 13.2 % (11.5-14.5) 11/17/21 07:15 Plt Count 447 K/uL (130-400) H 11/17/21 07:15 MPV 10.4 fL (9.4-12.3) 11/17/21 07:15 Immature Gran % (Auto) 0.2 % 11/16/21 06:34 Neut % (Auto) 75.3 % 11/16/21 06:34 Lymph % (Auto) 15.3 % 11/16/21 06:34 [place] % (Auto) 6.7 % 11/16/21 06:34 Eos % (Auto) 1.8 % 11/16/21 06:34 Baso % (Auto) 0.7 % 11/16/21 06:34 Neut # (Auto) 7.35 K/uL (1.4-6.5) H 11/16/21 06:34 Lymph # (Auto) 1.49 K/uL (1.2-3.4) 11/16/21 06:34 [place] # (Auto) 0.65 K/uL (0.24-0.82) 11/16/21 06:34 Eos # (Auto) 0.18 K/uL (0-0.50) 11/16/21 06:34 Baso # (Auto) 0.07 K/uL (0-0.2) 11/16/21 06:34 Immature Gran # (Auto) 0.02 K/uL (0.00-0.02) 11/16/21 06:34 Sodium 139 mmol/L (136-145) 11/18/21 06:22 Potassium 3.5 mmol/L (3.5-5.1) 11/18/21 06:22 Chloride 100 mmol/L (98-107) 11/18/21 06:22 Carbon Dioxide 32 mmol/L (21-32) 11/18/21 06:22 Anion Gap 7 (3-11) 11/18/21 06:22 BUN 10 mg/dl (6-23) 11/18/21 06:22 Creatinine 0.85 mg/dl (0.6-1.2) 11/18/21 06:22 Est Cr Clr Drug Dosing 61.4 ml/min 11/18/21 06:22 Est GFR ( Amer) 81.6 ml/min 11/18/21 06:22 Est GFR (Non-Af Amer) 70.4 ml/min 11/18/21 06:22 BUN/Creatinine Ratio 11.8 (10-20) 11/18/21 06:22 Glucose 81 mg/dl (70-99(Fasting)) 11/18/21 06:22 Calcium 9.6 mg/dl (8.5-10.1) 11/18/21 06:22 Phosphorus 4.1 mg/dl (2.5-4.9) 11/17/21 07:15 Magnesium 1.9 mg/dl (1.7-2.4) 11/18/21 06:22 Total Bilirubin 2.9 mg/dl (0.2-1.0) H 11/18/21 06:22 Direct Bilirubin 0.4 mg/dl (0-0.2) H 11/18/21 06:22 AST 32 U/L (13-39) 11/18/21 06:22 ALT 61 U/L (7-52) H 11/18/21 06:22 Alkaline Phosphatase 80 U/L (34-104) 11/18/21 06:22 Total Protein 7.1 gm/dl (6.0-8.3) 11/18/21 06:22 Albumin 4.3 gm/dl (3.4-5.0) 11/18/21 06:22 Globulin 2.2 gm/dl (2.5-4.0) L 11/17/21 07:15 Albumin/Globulin Ratio 1.8 (0.9-2) 11/17/21 07:15 Lipase 61 U/L (11-82) 11/17/21 07:15 Urine Color Yellow 11/15/21 19:36 Urine Appearance Cloudy (Clear) A 11/15/21 19:36 Urine pH 8.0 (4.5-7.5) H 11/15/21 19:36 Ur Specific [place] 1.016 (1.000-1.030) 11/15/21 19:36 Urine Protein Negative (Negative) 11/15/21 19:36 Urine Glucose (UA) Negative (Negative) 11/15/21 19:36 Urine Ketones Negative (Negative) 11/15/21 19:36 Urine Blood Trace (Negative) H 11/15/21 19:36 Urine Nitrite Negative (Negative) 11/15/21 19:36 Urine Bilirubin Negative (Negative) 11/15/21 19:36 Urine Urobilinogen Negative (Negative) 11/15/21 19:36 Ur Leukocyte Esterase Negative (Negative) 11/15/21 19:36 Urine WBC (Auto) 1-5 /hpf (0-5) 11/15/21 19:36 Urine RBC (Auto) 5-10 /hpf (0-4) H 11/15/21 19:36 U Hyaline Cast (Auto) 0 /lpf (0-5) 11/15/21 19:36 U Epithel Cells (Auto) 0-5 /lpf (0-5) 11/15/21 19:36 Urine Bacteria (Auto) Negative (Negative) 11/15/21 19:36 SARS-CoV-2, RNA, NAAT NEGATIVE (NEGATIVE) 11/15/21 23:42 Impressions Gallbladder Ultrasound 11/15/21 20:35 ULTRASOUND RIGHT UPPER QUADRANT ABDOMEN CLINICAL HISTORY: Right upper quadrant abdominal pain. COMPARISON STUDY: No priors. TECHNIQUE: Real-time, grayscale, and color flow sonography of the right upper quadrant of the abdomen was performed. Images are reviewed in the transverse and longitudinal planes. FINDINGS: Liver: The liver is normal in size and echotexture. There is no intrahepatic biliary ductal dilatation. The main portal vein is patent. Gallbladder: The gallbladder is distended and contains numerous small shadowing gallstones. The gallbladder wall is mildly thickened and edematous measuring up to 4 mm in diameter. No pericholecystic fluid is seen. A sonographic Millan's sign is reportedly absent. The common bile duct measures up to 0.7 cm in diameter. Pancreas: Visualized portions of the pancreatic head and body are normal in appearance. The splenic vein is patent. Right kidney: Survey images of the right kidney demonstrate normal size and echotexture. There is no hydronephrosis. Subcentimeter cysts are incidentally noted. Ascites: None. IMPRESSION: 1. The gallbladder is distended. The gallbladder wall is mildly thickened and edematous and there are numerous gallstones. A sonographic Millan's sign is reportedly absent, and findings are equivocal for acute cholecystitis which is not excluded. Correlate with clinical and laboratory findings. If there are strong clinical concern for acute cholecystitis a nuclear hepatobiliary scan could be considered for further assessment. 2. The common bile duct is top normal in caliber for age measuring up to 7 mm. 3. No intrahepatic biliary duct dilatation is seen. ACT 112: Negative or not required by law. Electronically signed by: Tristen Beckwith M.D. 11/15/2021 9:38 PM Cholangiopancreatography MRI 11/16/21 01:16 MR MRCP HISTORY: 66 years-old Female abn lfts elevated LFTs COMPARISON: Bladder ultrasound 11/15/2021 TECHNIQUE: MRCP was obtained without the use of IV contrast. FINDINGS: Motion degraded exam. Cardiomegaly noted on the delicatessen clerk localizer images. Indeterminate foci involving the L3 and L4 vertebral bodies, possibly sales representative cash registers of hemangiomata. levoscoliosis with multilevel degenerative changes. T2 hyperintense foci within the left hemipelvis measures 2.8 cm suggestive of ovarian cysts. Study is motion degraded. No bowel obstruction or bowel wall thickening identified. Indeterminate 1.2 cm lesion within the superior pole left kidney demonstrates intermediate to slightly decreased T2 signal. There are a few probable cyst in the right kidney which are subcentimeter in size. There are a few scattered subcentimeter T2 hyperintense foci of the pancreas measuring up to 5 mm suggestive of probable sidebranch IPMN's. No pancreatic ductal dilation. Indeterminate 6 mm mildly T2 hyperintense focus of the right hepatic lobe, image 14 series 5. The common bile duct is normal measuring 7 mm. No choledocholithiasis identified. Gallbladder wall thickening with distention is redemonstrated along with layering cholelithiasis and mild pericholecystic edema. IMPRESSION: 1. Motion degraded exam. 2. Cholelithiasis with gallbladder distention, wall thickening and pericholecystic edema is suspicious for acute cholecystitis. 3. No biliary ductal dilation or choledocholithiasis identified. 4. Indeterminate 1.2 cm lesion of the superior pole left kidney. This could be correlated with a follow-up ultrasound. ACT 112: Negative or not required by law. The above report was generated using voice recognition software. It may contain grammatical, syntax or spelling errors. Electronically signed by: Myles Willis M.D. 11/16/2021 11:26 AM
[2021-11-18] MEDS ORDERED: ceFAZolin 330 MG/ML 1 GM VIAL ONE (14:42)
--- NOTE | 2021-11-18 14:57 | Post Operative Brief Note ---
Immediate Post Op Note v1 Date of Surgery November 18, 2021 Pre & Post Diagnosis Operation Date: 11/18/21 07:55 Pre-Op Diagnosis: Gallstone Pancreatitis, Acute Cholecystitis Post-Op Diagnosis: Gallstone Pancreatitis, Acute Cholecystitis Operation Date: 11/19/21 07:00 <No data on this case meets the specified criteria> I identified the patient and participated in the time-out.: Yes Procedure Operation Date: 11/18/21 07:55 Actual Procedures p Laparoscopic Cholecystectomy(Not Applicable) - Donny Betancourt MD Operation Date: 11/19/21 07:00 <No data on this case meets the specified criteria> Surgeon Donny Betancourt MD 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
--- NOTE | 2021-11-18 15:38 | Anesthesiology Progress Note ---
Date of Service November 18, 2021 Anesthesia Post Procedure Vital Signs Vital Signs: Temp Pulse Pulse Resp BP BP Pulse Ox 11/18/21 15:35 65 13 160/83 H 99 11/18/21 15:25 65 12 162/86 H 100 11/18/21 15:15 68 14 169/94 H 100 11/18/21 15:06 98.8 F 76 12 171/100 H 100 11/18/21 12:28 98.8 F 77 20 154/94 H 100 11/18/21 07:35 97.7 F 65 18 164/92 H 99 11/17/21 21:10 98.2 F 60 16 153/92 H 96 O2 Del Method O2 Flow Rate 11/18/21 15:35 Room Air 11/18/21 15:25 Oxymask 4 11/18/21 15:15 Oxymask 9 11/18/21 15:06 Oxymask 9 11/18/21 12:28 Room Air 11/18/21 07:35 Room Air 11/17/21 21:10 Pain Intensity Abdomen: Pain Intensity: 3 Transfer of Care Handoff Completed per policy Notes Mental Status: alert / awake / arousable and participated in evaluation Patient Amnestic to Procedure: Yes Nausea / Vomiting: adequately controlled Pain: adequately controlled Airway Patency, RR, SpO2: stable & adequate BP & HR: stable & adequate Hydration State: stable & adequate Anesthetic Complications: no major complications apparent and Pt Satisfied with anesthetic care
[2021-11-18] MEDS ORDERED: NON-FORMULARY MEDICATION (Ibandronate 150 mg tablet) PO SCH (16:15)
[2021-11-18] MEDS ORDERED: HYDROmorphone INJ 0.5 MG/0.5 ML SYR IV PRN (16:15)
[2021-11-18] MEDS ORDERED: oxyCODONE/ACETAMINOPHEN 5mg/325mg TAB PO PRN (16:15)
[2021-11-18] MEDS: lisinopril 5 MG TAB PO SCH (17:15)
[2021-11-18] MEDS: MULTIVITAMIN TAB PO SCH (17:16)
--- NOTE | 2021-11-18 22:08 | Operative Report (OR) ---
DATE OF PROCEDURE: 11/18/2021 PREOPERATIVE DIAGNOSES: Acute cholecystitis with cholelithiasis. POSTOPERATIVE DIAGNOSES: Acute cholecystitis with cholelithiasis. OPERATION: Laparoscopic cholecystectomy. SURGEON: Donny Betancourt MD ANESTHESIA: General. ESTIMATED BLOOD LOSS: About 15 mL. COMPLICATIONS: None. FINDINGS: Acute cholecystitis, cholelithiasis. INDICATIONS FOR THE PROCEDURE: This is a 66-year-old female who was admitted to the hospital for acu te cholecystitis and gallstone pancreatitis with cholelithiasis and I recommended to do laparoscopic cholecystectomy, possible open, possible cholangiogram. I did talk to the patient about the benefit, risk, alternate procedure. I indicated the risks may include, but not limited to, such as bleeding, infection, injury to other organs, bile leak, may need ERCP, incisional hernia, myocardial infarctio n, DVT, stroke, even . The patient understands. She signed informed consent and I answered all questions. DETAILS OF PROCEDURE: After we identified the patient and verified the procedure, we brought the pat ient to the OR, put the patient in the supine position on the OR table. The patient received SCD on bilateral legs to prevent DVT. Also, the patient received 2 grams of Ancef IV for prophylactic antib iotic. The patient received general anesthesia without difficulty. The abdomen was prepped and drap ed in routine sterile fashion. After timeout, I injected the local anesthesia by using 1% lidocaine mixed with 0.5% Marcaine just below the umbilicus. Then I made a small incision just below the umbil icus, opened fascia, opened peritoneum. Under direct vision, put a Farhat trocar in, connected to CO 2 to create pneumoperitoneum, flow rate at 6 liters per minute, pressure not more than 14 mmHg. Once we got a nice pneumoperitoneum, we put a camera in, looked around the abdomen. It showed normal finding on the liver; however, the gallbladder showed acute cholecystitis with gallbladder wall thic kening and edema. Once we confirmed the diagnosis, we put another two 5 mm trocars on the right uppe r quadrant and one 11 trocar in the epigastric area. Once all trocars were in, we used the grasper t o hold the base of gallbladder, put it in the direction to the diaphragm, another grasper to hold the pouch of gallbladder, put a lateral to expose triangle of [place]. The cystic duct was identified and mobilized. I put two 10 mm metal clips on the proximal cystic duct, one on the distal cystic duct, rechecked and no bile leak, no active bleeding. The cystic artery was identified and mobilized. I p ut two 5 mm metal clips on the proximal cystic artery and one on the distal cystic artery, used a sci ssor for transection of cystic artery, rechecked, no active bleeding. Then, we used the Bovie to beth e down gallbladder from liver bed; rechecked, no active bleeding or bile leak from liver bed. Then, we removed gallbladder through the catch bag. Then, we reinserted the Farhat trocar in, connected to CO2 to create pneumoperitoneum, again looked a round the abdomen, no active bleeding, no bile leak from liver bed. Then, we removed all trocars und er direct vision. No active bleeding from the trocar sites. Pneumoperitoneum was released. Then I closed the umbilical incision fascial layer by using 0 Vicryl [id number] x2, closed subcutaneous layer by using 2-0 Vicryl interruptedly, closed skin by using 4-0 Vicryl continuous running, closed the epigastric incision the fascial layer by using 0 Vicryl [id number] x2, closed subcutaneous l [place] by using 2-0 Vicryl interruptedly, closed skin by using 4-0 Vicryl interruptedly, closed another two 5 mm trocar site skin only by using 4-0 Vicryl. Then, we put the dressing on. The patient tole rated the procedure well. All instrument, needle and sponge counts were correct x2 at the end of the case. The patient was transferred to recovery room in stable condition. The specimen was sent to p athology. After the procedure, I did talk to the patient about the OR finding, procedure we did, and the patient understood. Job ID: [id number]
[2021-11-19] MEDS: PIPERACILLIN/TAZOBACTAM 3.375 GM in DEXTROSE 5% 100 ML IV SCH ×2 (05:41→17:26)
[2021-11-19 05:59] LABS: Basophils # (auto) 0.03 K/uL (0-0.2); Basophils % (auto) 0.2 %; Hematocrit (blood only) 40.4 % (34.1-44.9); Hemoglobin 13.6 g/dl (12.0-16.0); Immature Granulocytes # (auto) 0.05 K/uL (0.00-0.02); Immature Granulocytes % (auto) 0.4 %; Lymphocytes # (auto) 0.68 K/uL (1.2-3.4); Mean Corpuscular Hemoglobin 29.6 pg (25.0-34.0); Mean Corpuscular Hgb Conc 33.7 g/dL (32.0-36.0); Mean Platelet Volume 10.3 fL (9.4-12.3); Monocytes % (auto) 6.7 %; Neutrophils # (auto) 11.87 K/uL (1.4-6.5); Neutrophils % (auto) 87.7 %; Platelet Count 509 K/uL (130-400); RDW Standard Deviation 41.8 fL (36.4-46.3); Red Blood Count 4.59 M/uL (3.93-5.22); White Blood Count 13.53 K/ul (4.8-10.8)
[2021-11-19 06:21] LABS: Albumin Globulin Ratio 1.7 (0.9-2); Albumin Level 3.9 gm/dl (3.4-5.0); BUN Creatinine Ratio 15.3 (10-20); Bilirubin,Total 2.1 mg/dl (0.2-1.0); Calcium 8.9 mg/dl (8.5-10.1); Creatinine Clr Calc Pharmacy 53.3 ml/min; Est GFR (African American) 68.7 ml/min; Est GFR (Non-African American) 59.3 ml/min; Globulin 2.3 gm/dl (2.5-4.0); Potassium 4.3 mmol/L (3.5-5.1); Total Protein 6.2 gm/dl (6.0-8.3)
[2021-11-19] MEDS ORDERED: INDOMETHACIN 50 MG SUPP PR ONE ×2 (08:00→15:14)
--- NOTE | 2021-11-19 09:08 | Ultrasound Report ---
RENAL ULTRASOUND CLINICAL HISTORY: Lesion in superior left pole of kidney COMPARISON STUDY: MRCP November 16, 2021. TECHNIQUE: Sonography of the kidneys and the urinary bladder was performed. FINDINGS: The right kidney measures 10.6 cm in maximal dimension and the left measures 10.5 cm. There is no hydronephrosis. No urinary calculi are identified by sonography. Renal echogenicity, size and cortical thickness are normal. There is a 1.7 cm echogenic lesion within the upper pole of the left k idney which corresponds to the lesion on MRCP of November 16, 2021. This study is compromised by sub optimal penetration. Left ureteral jet was visualized. IMPRESSION: 1.7 cm echogenic lesion within the upper pole of the left kidney which corresponds to the lesion on MRCP. This does not reflect a cyst. Differential considerations include an angiomyolipoma or renal cell carcinoma. Renal protocol CT with and without contrast is recommended for further evalu ation. ACT 112: Positive. There are findings on this exam that require communication between the performing entity and the patient following Patient Test Result Information Act ([place] Act 112) guidelines. Electronically signed by: Harsha Ramirez M.D. 11/19/2021 9:06 AM
--- NOTE | 2021-11-19 09:31 | Gastroenterology Progress Note ---
Date of Service November 19, 2021 Assessment & Plan (1) Gallstone pancreatitis: Plan: Patient is a 66 years old female admitted for suspected gallstone pancreatitis. S/P cholecystectomy on 11/18, LFTs stable. On exam, mild TTP around surgical sites, but otherwise unremarkable. - Continue IV antibx - NPO - ERCP in OR with Dr. Barker today - Further GI recs after ERCP completed. - Trend LFTs Admission and Anticipated Discharge Date Admission Date: November 16, 2021 Supervising Physician Co-Signing Physician Notes I performed a history and physical examination of the patient today, including specifically on physical exam - soft abdomen. I have discussed the patient's management with the advanced practitioner. Please refer to the nurse practitioner's note for the documented findings and plan of care. ERCP Patient was explained in detail regarding risks, benefits, limitations and alternatives of the above endoscopic procedure. Risks of intravenous sedation used for procedure were also explained. Risks include, but not limited to perforation, bleeding, infection, respiratory distress, cardiac arrest and . Patient is also aware about the possibility of missed lesion. Patient's questions were answered. The patient verbalized understanding the information and agreed to undergo the procedure. Subjective Pt is s/p cholecystectomy 11/18. Some abd tenderness, no n/v. Physical Exam Constitutional: WD/WN, vitals as above well groomed, cooperative and comfortable Eyes: PERRL, conjunctivae normal, anicteric sclerae ENMT: external ear and nose normal, oropharynx normal Respiratory: normal respiratory effort, lungs clear to auscultation Cardiovascular: RRR, no murmur, no edema Gastrointestinal (Abdomen): + TTP around surgical site, hypoactive BS, soft. Skin: no rashes, warm and dry no jaundice Psychiatric: A+Ox3, euthymic affect Lymphatic: no lymphedema Results & Data ([facility]) Vital Signs (Past 12 Hours) Vital Signs Temp Pulse Resp BP Pulse Ox O2 Del Method 11/19/21 07:37 36.7 C 70 16 115/70 97 Room Air 11/18/21 23:01 37.6 C H 80 18 107/58 L 94 Room Air
--- NOTE | 2021-11-19 10:13 | Surgery Progress Note ---
Date of Service November 19, 2021 Assessment & Plan (1) Gallstone pancreatitis: (2) Acute cholecystitis: Plan POD # 1 s/p laparoscopic cholecystectomy -afebrile - minimal postop soreness - nausea controlled with meds - t. bili slight improvement scheduled for ERCP today - LFTs slight elevation Plan: Continue NPO for ERCP today Continue pain medication as needed Continue Zosyn Continue IV fluids Incentive spirometry Continue ambulation SCDs for DVT prophylaxis Will need further renal CT based on US results, advised patient medicine team will review but likely could be done as outpatient Dr. Betancourt has seen and examined pt agrees with above Admission and Anticipated Discharge Date Admission Date: November 16, 2021 Subjective feeling well this morning, no abdominal pain just soreness at incision sites had nausea last night and dry heaves, controlled with medication no vomiting no chest pain or shortness of breath urinating without difficulty ERCP is scheduled for 3 pm Physical Exam Constitutional: WD/WN, vitals as above cooperative and comfortable; no acute distress and not ill appearing Respiratory: normal respiratory effort; no respiratory distress Gastrointestinal (Abdomen): Inspection/Auscultation: abdomen normal to inspection and + abdominal surgical incision (covered with dressings); abdomen not distended Percussion/Palpation: abdomen soft; abdomen nontender, no guarding and abdomen not rigid ecchymosis surrounding supxiphoid incision Skin: no rashes, warm and dry no jaundice Psychiatric: A+Ox3, euthymic affect Results & Data ([facility]) Vital Signs (Past 12 Hours) Vital Signs Temp Pulse Resp BP Pulse Ox O2 Del Method 11/19/21 07:37 36.7 C 70 16 115/70 97 Room Air 11/18/21 23:01 37.6 C H 80 18 107/58 L 94 Room Air Laboratory Results 11/19/21 11/19/21 11/18/21 Range/Units 05:39 05:39 06:22 WBC 13.53 H (4.8-10.8) K/ul RBC 4.59 (3.93-5.22) M/uL Hgb 13.6 (12.0-16.0) g/dl Hct 40.4 (34.1-44.9) % MCV 88.0 (80.0-100.0) fL MCH 29.6 (25.0-34.0) pg MCHC 33.7 (32.0-36.0) g/dL RDW Std Deviation 41.8 (36.4-46.3) fL RDW Coeff of Robert 13.0 (11.5-14.5) % Plt Count 509 H (130-400) K/uL MPV 10.3 (9.4-12.3) fL Immature Gran % (Auto) 0.4 % Neut % (Auto) 87.7 % Lymph % (Auto) 5.0 % [place] % (Auto) 6.7 % Eos % (Auto) 0.0 % Baso % (Auto) 0.2 % Neut # (Auto) 11.87 H (1.4-6.5) K/uL Lymph # (Auto) 0.68 L (1.2-3.4) K/uL [place] # (Auto) 0.90 H (0.24-0.82) K/uL Eos # (Auto) 0.00 (0-0.50) K/uL Baso # (Auto) 0.03 (0-0.2) K/uL Immature Gran # (Auto) 0.05 H (0.00-0.02) K/uL Sodium 135 L (136-145) mmol/L Potassium 4.3 D (3.5-5.1) mmol/L Chloride 99 (98-107) mmol/L Carbon Dioxide 29 (21-32) mmol/L Anion Gap 7 (3-11) BUN 15 (6-23) mg/dl Creatinine 0.98 (0.6-1.2) mg/dl Est Cr Clr Drug Dosing 53.3 ml/min Est GFR ( Amer) 68.7 ml/min Est GFR (Non-Af Amer) 59.3 ml/min BUN/Creatinine Ratio 15.3 (10-20) Glucose 113 H (70-99(Fasting)) mg/dl Calcium 8.9 (8.5-10.1) mg/dl Total Bilirubin 2.1 H 2.9 H (0.2-1.0) mg/dl Direct Bilirubin 0.4 H (0-0.2) mg/dl AST 73 H 32 (13-39) U/L ALT 105 H 61 H (7-52) U/L Alkaline Phosphatase 79 80 (34-104) U/L Total Protein 6.2 7.1 (6.0-8.3) gm/dl Albumin 3.9 4.3 (3.4-5.0) gm/dl Globulin 2.3 L (2.5-4.0) gm/dl Albumin/Globulin Ratio 1.7 (0.9-2) Diagnostic Findings RENAL ULTRASOUND CLINICAL HISTORY: Lesion in superior left pole of kidney COMPARISON STUDY: MRCP November 16, 2021. TECHNIQUE: Sonography of the kidneys and the urinary bladder was performed. FINDINGS: The right kidney measures 10.6 cm in maximal dimension and the left measures 10.5 cm. There is no hydronephrosis. No urinary calculi are identified by sonography. Renal echogenicity, size and cortical thickness are normal. There is a 1.7 cm echogenic lesion within the upper pole of the left kidney which corresponds to the lesion on MRCP of November 16, 2021. This study is compromised by suboptimal penetration. Left ureteral jet was visualized. IMPRESSION: 1.7 cm echogenic lesion within the upper pole of the left kidney w hich corresponds to the lesion on MRCP. This does not reflect a cyst. Differential considerations include an angiomyolipoma or renal cell carcinoma. Renal protocol CT with and without contrast is recommended for further evaluation.
[2021-11-19] MEDS ORDERED: oxyCODONE HCL IR 5 MG TAB (IMMEDIATE RELEASE) PO PRN (13:29)
--- NOTE | 2021-11-19 13:30 | Hospitalist Progress Note ---
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 Abdominal pain recurred in the afternoon of the day of arrival with nausea/no emesis and hence patient presented to the ED. She is being managed for the following: Gallstone pancreatitis s/p laparoscopic cholecystectomy on 11/18 Acute cholecystitis Patient presents with recurrent abdominal pain, RUQ tender at admission. No sepsis POA. Admitting bilirubin and lipase elevated. Admitting gallbladder ultrasound: Cholelithiasis noted, findings equivocal for acute cholecystitis changes. CBD diameter normal in caliber. Admitting MRCP: Suggestive of acute cholecystitis. Cholelithiasis with GB distention noted. 1.2 cm lesion of superior pole left kidney, follow-up ultrasound recommended. Plan: Patient to undergo ERCP today by GI. Continue on Zosyn Advance diet as per GI. Pain control Renal massMRCP showed 1.2 cm lesion in left kidney.. Ultrasound showed echogenic lesion. We will plan to have outpatient follow-up for urology. Other chronic medical conditions: CHF [EF 45 to 49%], HTN, ventricular ectopic beats --->> continue with/resume home meds as and when appropriate. Blood pressure slightly elevated likely secondary to acute illness, continue to monitor. Prn HTN meds. DVT prophylaxis. Lovenox subcu Full code Admission and Anticipated Discharge Date Admission Date: November 16, 2021 Subjective Patient seen and examined at bedside. Patient denies any pain or discomfort. Patient to undergo ERCP today. Review of Systems Review of Systems: All systems reviewed & are unremarkable except as noted in Subjective Physical Exam Physical Exam: GENERAL: Alert and oriented x3. NAD, on RA. HEENT: No pallor, no icterus. Pupils equal, round and reactive to light. Oral mucosa moist. NECK: No JVD, no neck masses. HEART: S1 and S2 heard. Regular rate and rhythm. No murmur, no gallop. RESPIRATORY SYSTEM: Normal AP diameter. No accessory muscle use. No wheezing, no crackles. ABDOMEN: bandage over surgical site. soft, CENTRAL NERVOUS SYSTEM: No facial droop. Speech is clear. Obeys simple commands. Moves extremities. EXTREMITIES: No edema, no erythema seen. Results & Data Results & Data ([facility]) Vital Signs (Past 12 Hours) Vital Signs Temp Pulse Resp BP Pulse Ox O2 Del Method 11/19/21 07:37 36.7 C 70 16 115/70 97 Room Air Laboratory Results Laboratory Results WBC 13.53 K/ul (4.8-10.8) H 11/19/21 05:39 RBC 4.59 M/uL (3.93-5.22) 11/19/21 05:39 Hgb 13.6 g/dl (12.0-16.0) 11/19/21 05:39 Hct 40.4 % (34.1-44.9) 11/19/21 05:39 MCV 88.0 fL (80.0-100.0) 11/19/21 05:39 MCH 29.6 pg (25.0-34.0) 11/19/21 05:39 MCHC 33.7 g/dL (32.0-36.0) 11/19/21 05:39 RDW Std Deviation 41.8 fL (36.4-46.3) 11/19/21 05:39 RDW Coeff of Robert 13.0 % (11.5-14.5) 11/19/21 05:39 Plt Count 509 K/uL (130-400) H 11/19/21 05:39 MPV 10.3 fL (9.4-12.3) 11/19/21 05:39 Immature Gran % (Auto) 0.4 % 11/19/21 05:39 Neut % (Auto) 87.7 % 11/19/21 05:39 Lymph % (Auto) 5.0 % 11/19/21 05:39 [place] % (Auto) 6.7 % 11/19/21 05:39 Eos % (Auto) 0.0 % 11/19/21 05:39 Baso % (Auto) 0.2 % 11/19/21 05:39 Neut # (Auto) 11.87 K/uL (1.4-6.5) H 11/19/21 05:39 Lymph # (Auto) 0.68 K/uL (1.2-3.4) L 11/19/21 05:39 [place] # (Auto) 0.90 K/uL (0.24-0.82) H 11/19/21 05:39 Eos # (Auto) 0.00 K/uL (0-0.50) 11/19/21 05:39 Baso # (Auto) 0.03 K/uL (0-0.2) 11/19/21 05:39 Immature Gran # (Auto) 0.05 K/uL (0.00-0.02) H 11/19/21 05:39 Sodium 135 mmol/L (136-145) L 11/19/21 05:39 Potassium 4.3 mmol/L (3.5-5.1) D 11/19/21 05:39 Chloride 99 mmol/L (98-107) 11/19/21 05:39 Carbon Dioxide 29 mmol/L (21-32) 11/19/21 05:39 Anion Gap 7 (3-11) 11/19/21 05:39 BUN 15 mg/dl (6-23) 11/19/21 05:39 Creatinine 0.98 mg/dl (0.6-1.2) 11/19/21 05:39 Est Cr Clr Drug Dosing 53.3 ml/min 11/19/21 05:39 Est GFR ( Amer) 68.7 ml/min 11/19/21 05:39 Est GFR (Non-Af Amer) 59.3 ml/min 11/19/21 05:39 BUN/Creatinine Ratio 15.3 (10-20) 11/19/21 05:39 Glucose 113 mg/dl (70-99(Fasting)) H 11/19/21 05:39 Calcium 8.9 mg/dl (8.5-10.1) 11/19/21 05:39 Phosphorus 4.1 mg/dl (2.5-4.9) 11/17/21 07:15 Magnesium 1.9 mg/dl (1.7-2.4) 11/18/21 06:22 Total Bilirubin 2.1 mg/dl (0.2-1.0) H 11/19/21 05:39 Direct Bilirubin 0.4 mg/dl (0-0.2) H 11/18/21 06:22 AST 73 U/L (13-39) H 11/19/21 05:39 ALT 105 U/L (7-52) H 11/19/21 05:39 Alkaline Phosphatase 79 U/L (34-104) 11/19/21 05:39 Total Protein 6.2 gm/dl (6.0-8.3) 11/19/21 05:39 Albumin 3.9 gm/dl (3.4-5.0) 11/19/21 05:39 Globulin 2.3 gm/dl (2.5-4.0) L 11/19/21 05:39 Albumin/Globulin Ratio 1.7 (0.9-2) 11/19/21 05:39 Lipase 61 U/L (11-82) 11/17/21 07:15 Urine Color Yellow 11/15/21 19:36 Urine Appearance Cloudy (Clear) A 11/15/21 19:36 Urine pH 8.0 (4.5-7.5) H 11/15/21 19:36 Ur Specific [place] 1.016 (1.000-1.030) 11/15/21 19:36 Urine Protein Negative (Negative) 11/15/21 19:36 Urine Glucose (UA) Negative (Negative) 11/15/21 19:36 Urine Ketones Negative (Negative) 11/15/21 19:36 Urine Blood Trace (Negative) H 11/15/21 19:36 Urine Nitrite Negative (Negative) 11/15/21 19:36 Urine Bilirubin Negative (Negative) 11/15/21 19:36 Urine Urobilinogen Negative (Negative) 11/15/21 19:36 Ur Leukocyte Esterase Negative (Negative) 11/15/21 19:36 Urine WBC (Auto) 1-5 /hpf (0-5) 11/15/21 19:36 Urine RBC (Auto) 5-10 /hpf (0-4) H 11/15/21 19:36 U Hyaline Cast (Auto) 0 /lpf (0-5) 11/15/21 19:36 U Epithel Cells (Auto) 0-5 /lpf (0-5) 11/15/21 19:36 Urine Bacteria (Auto) Negative (Negative) 11/15/21 19:36 SARS-CoV-2, RNA, NAAT NEGATIVE (NEGATIVE) 11/15/21 23:42 Impressions Gallbladder Ultrasound 11/15/21 20:35 ULTRASOUND RIGHT UPPER QUADRANT ABDOMEN CLINICAL HISTORY: Right upper quadrant abdominal pain. COMPARISON STUDY: No priors. TECHNIQUE: Real-time, grayscale, and color flow sonography of the right upper quadrant of the abdomen was performed. Images are reviewed in the transverse and longitudinal planes. FINDINGS: Liver: The liver is normal in size and echotexture. There is no intrahepatic biliary ductal dilatation. The main portal vein is patent. Gallbladder: The gallbladder is distended and contains numerous small shadowing gallstones. The gallbladder wall is mildly thickened and edematous measuring up to 4 mm in diameter. No pericholecystic fluid is seen. A sonographic Millan's sign is reportedly absent. The common bile duct measures up to 0.7 cm in diameter. Pancreas: Visualized portions of the pancreatic head and body are normal in appearance. The splenic vein is patent. Right kidney: Survey images of the right kidney demonstrate normal size and echotexture. There is no hydronephrosis. Subcentimeter cysts are incidentally noted. Ascites: None. IMPRESSION: 1. The gallbladder is distended. The gallbladder wall is mildly thickened and edematous and there are numerous gallstones. A sonographic Millan's sign is reportedly absent, and findings are equivocal for acute cholecystitis which is not excluded. Correlate with clinical and laboratory findings. If there are strong clinical concern for acute cholecystitis a nuclear hepatobiliary scan could be considered for further assessment. 2. The common bile duct is top normal in caliber for age measuring up to 7 mm. 3. No intrahepatic biliary duct dilatation is seen. ACT 112: Negative or not required by law. Electronically signed by: Tristen Beckwith M.D. 11/15/2021 9:38 PM Cholangiopancreatography MRI 11/16/21 01:16 MR MRCP HISTORY: 66 years-old Female abn lfts elevated LFTs COMPARISON: Bladder ultrasound 11/15/2021 TECHNIQUE: MRCP was obtained without the use of IV contrast. FINDINGS: Motion degraded exam. Cardiomegaly noted on the pole incisor operator localizer images. Indeterminate foci involving the L3 and L4 vertebral bodies, possibly brand representative of hemangiomata. levoscoliosis with multilevel degenerative changes. T2 hyperintense foci within the left hemipelvis measures 2.8 cm suggestive of ovarian cysts. Study is motion degraded. No bowel obstruction or bowel wall thickening identified. Indeterminate 1.2 cm lesion within the superior pole left kidney demonstrates intermediate to slightly decreased T2 signal. There are a few probable cyst in the right kidney which are subcentimeter in size. There are a few scattered subcentimeter T2 hyperintense foci of the pancreas measuring up to 5 mm suggestive of probable sidebranch IPMN's. No pancreatic ductal dilation. Indeterminate 6 mm mildly T2 hyperintense focus of the right hepatic lobe, image 14 series 5. The common bile duct is normal measuring 7 mm. No choledocholithiasis identified. Gallbladder wall thickening with distention is redemonstrated along with layering cholelithiasis and mild pericholecystic edema. IMPRESSION: 1. Motion degraded exam. 2. Cholelithiasis with gallbladder distention, wall thickening and sandoval cholecystic edema is suspicious for acute cholecystitis. 3. No biliary ductal dilation or choledocholithiasis identified. 4. Indeterminate 1.2 cm lesion of the superior pole left kidney. This could be correlated with a follow-up ultrasound. ACT 112: Negative or not required by law. The above report was generated using voice recognition software. It may contain grammatical, syntax or spelling errors. Electronically signed by: Myles Willis M.D. 11/16/2021 11:26 AM Renal Ultrasound 11/19/21 09:00 RENAL ULTRASOUND CLINICAL HISTORY: Lesion in superior left pole of kidney COMPARISON STUDY: MRCP November 16, 2021. TECHNIQUE: Sonography of the kidneys and the urinary bladder was performed. FINDINGS: The right kidney measures 10.6 cm in maximal dimension and the left measures 10.5 cm. There is no hydronephrosis. No urinary calculi are identified by sonography. Renal echogenicity, size and cortical thickness are normal. There is a 1.7 cm echogenic lesion within the upper pole of the left kidney which corresponds to the lesion on MRCP of November 16, 2021. This study is compromised by suboptimal penetration. Left ureteral jet was visualized. IMPRESSION: 1.7 cm echogenic lesion within the upper pole of the left kidney which corresponds to the lesion on MRCP. This does not reflect a cyst. Differential considerations include an angiomyolipoma or renal cell carcinoma. Renal protocol CT with and without contrast is recommended for further evaluation. ACT 112: Positive. There are findings on this exam that require communication between the performing entity and the patient following Patient Test Result Information Act ([place] Act 112) guidelines. Electronically signed by: Harsha Ramirez M.D. 11/19/2021 9:06 AM
--- NOTE | 2021-11-19 14:59 | Anesthesiology Consultation ---
Date of Service November 19, 2021 Assessment & Plan Chart Review Chart Review: Acceptable Risk for Surgery and Patient NOT seen in Pre Admission Testing Consults Requested none ASA ASA4 Proposed Anesthesia Anesthesia Type: General History Surgery Operation Date: 11/18/21 07:55 Proposed Procedures p Laparoscopic Cholecystectomy - Donny Betancourt MD Operation Date: 11/19/21 07:00 Proposed Procedures p Endoscopic Retrograde Cholangiopancreatogram - Corrine Barker MD Height/Weight Height: 5 ft 7 in Weight: 61.4 kg Allergies Allergy/AdvReac Type Severity Reaction Status Date / Time No Known Allergies Allergy Unverified 11/16/21 00:19 Medications Home Medications Medication Instructions Recorded Confirmed Last Taken aspirin 81 mg chewable tablet 81 mg PO DAILY 11/16/21 11/16/21 Unknown cholecalciferol (vitamin D3) 50 50 mcg PO DAILY 11/16/21 11/16/21 Unknown mcg (2,000 unit) tablet (Vitamin D3) hydrochlorothiazide 12.5 mg capsule 12.5 mg PO Q OTHER DAY 11/16/21 11/16/21 Unknown ibandronate 150 mg tablet 150 mg PO MO 11/16/21 11/16/21 Unknown lisinopril 2.5 mg tablet 2.5 mg PO DAILY 11/16/21 11/16/21 Unknown metoprolol succinate 25 mg 37.5 mg PO DAILY 11/16/21 11/16/21 Unknown tablet,extended release 24 hr multivitamin 1 tab PO DAILY 11/16/21 11/16/21 Unknown Active Medications Generic Name Dose Route Start Last Admin Trade Name Freq PRN Reason Stop Dose Admin Enoxaparin Sodium 40 mg 11/16/21 09:00 11/17/21 07:27 Enoxaparin Inj 40 Mg/0.4 Ml Syr SQ 12/16/21 08:59 40 mg QAM MINDY Administration Hydrochlorothiazide 12.5 mg 11/17/21 09:00 11/17/21 09:46 Hydrochlorothiazide 25 Mg Tab PO 12/17/21 08:59 12.5 mg Q48H MINDY Administration Promethazine HCl 6.25 mg/ 50.25 mls @ 201 mls/hr 11/16/21 01:17 11/19/21 03:05 Sodium Chloride IV 12/16/21 01:16 Infused Q6H PRN Infusion Nausea And Vomiting Piperacillin Sod/Tazobactam 115 mls @ 28.75 mls/hr 11/16/21 06:00 11/19/21 10:25 Sod 3.375 gm/ Dextrose IV 11/26/21 05:59 Infused Q8H MINDY Infusion Protocol Lisinopril 5 mg 11/16/21 09:00 11/18/21 17:15 Lisinopril 5 Mg Tab PO 12/16/21 08:59 Not Given DAILY MINDY Metoprolol Succinate 25 mg 11/16/21 09:00 11/18/21 08:28 Metoprolol Succ 25mg Ext Rel Tab PO 12/16/21 08:59 25 mg DAILY MINDY Administration Multivitamins 1 tab 11/16/21 09:00 11/18/21 17:16 Multivitamin Tab PO 12/16/21 08:59 Not Given QAM MINDY Tramadol HCl 25 - 50 mg 11/16/21 01:17 11/18/21 17:11 Tramadol Hcl 50 Mg Tablet PO 12/16/21 01:16 50 mg Q4H PRN Administration Pain NPO Date Last Intake of Fluids: 11/18/21 Time Last Intake of Fluids: 23:55 Date Last Intake of Solids: 11/18/21 Time Last Intake of Solids: 23:55 Exercise / Class Metabolic Activity III < 4 Walking/Shop/Light housework Past Anesthesia History No Hx of Anesthesia Complications and No Family Hx of Anesthesia Complications History of PONV No Hx of PONV and No Hx of Motion Sickness Social History Smoking Status: Never smoker Hx Alcohol Use: No Hx Substance Use: No Physical Exam Vital Signs Last Vital Signs Temp 37.3 C 11/19/21 14:45 Pulse 70 11/19/21 14:45 Resp 18 11/19/21 14:45 BP 147/74 H 11/19/21 14:45 Pulse Ox 94 11/19/21 14:45 O2 Del Method 11/19/21 14:45 O2 Flow Rate 4 11/18/21 15:25 Testing Laboratory Results 11/19/21 05:39 11/19/21 05:39 Urine Color Yellow 11/15/21 19:36 Urine Appearance Cloudy (Clear) A 11/15/21 19:36 Urine pH 8.0 (4.5-7.5) H 11/15/21 19:36 Ur Specific [place] 1.016 (1.000-1.030) 11/15/21 19:36 Urine Protein Negative (Negative) 11/15/21 19:36 Urine Glucose (UA) Negative (Negative) 11/15/21 19:36 Urine Ketones Negative (Negative) 11/15/21 19:36 Urine Nitrite Negative (Negative) 11/15/21 19:36 Ur Leukocyte Esterase Negative (Negative) 11/15/21 19:36 Urine WBC (Auto) 1-5 /hpf (0-5) 11/15/21 19:36 Urine RBC (Auto) 5-10 /hpf (0-4) H 11/15/21 19:36 U Hyaline Cast (Auto) 0 /lpf (0-5) 11/15/21 19:36 U Epithel Cells (Auto) 0-5 /lpf (0-5) 11/15/21 19:36 Urine Bacteria (Auto) Negative (Negative) 11/15/21 19:36 Electrocardiogram Date: 11/15/21 Findings: + NSR @ (at 74 w/PAC's)
[2021-11-19] MEDS ORDERED: LIDOCAINE 2% MPF LOCAL 5 ML VIAL INFIL ONE (15:11)
[2021-11-19] MEDS ORDERED: ROCURONIUM BROMIDE 10 MG/ML 5 ML VIAL IV ONE (15:11)
--- NOTE | 2021-11-19 15:15 | History & Physical Bridge Note ---
Date of Service November 19, 2021 History & Physical Bridge Note I have examined the patient, reviewed the History & Physical and in the interval since the performance of the History & Physical I have noted the following changes of clinical significance: no changes noted ERCP today
[2021-11-19] MEDS ORDERED: FLUMAZENIL 0.1 MG/1 ML 10 ML VIAL IV PRN (15:30)
[2021-11-19] MEDS ORDERED: ATROPINE SULFATE 0.1 MG/ML 10ML SYR IV PRN (15:30)
[2021-11-19] MEDS ORDERED: NALOXONE HCL 0.4 MG/1 ML VIAL/CARP IV PRN (15:30)
[2021-11-19] MEDS ORDERED: ePHEDrine sulfate 50 MG/ML AMP IV PRN (15:30)
[2021-11-19] MEDS ORDERED: LABETALOL HCL IV 5 MG/ML 20ML IV PRN (15:30)
[2021-11-19] MEDS ORDERED: PROMETHAZINE HCL 12.5 MG in SODIUM CHLORIDE 0.9% 50 ML IV PRN (15:30)
[2021-11-19] MEDS ORDERED: fentaNYL citrate 100 MCG/2 ML VIAL IV PRN (15:30)
[2021-11-19] MEDS ORDERED: ONDANSETRON INJ 2 MG/ML 2 ML VIAL IV PRN (15:30)
[2021-11-19] MEDS ORDERED: fentaNYL citrate 100 MCG/2 ML VIAL ONE (15:39)
[2021-11-19] MEDS ORDERED: PROPOFOL IV EMULSION 10 MG/ML 20 ML VIAL IV ONE (15:47)
[2021-11-19] MEDS ORDERED: DEXAMETHASONE SOD INJ 4 MG/ML VIAL ONE (15:47)
[2021-11-19] MEDS ORDERED: ONDANSETRON INJ 2 MG/ML 2 ML VIAL ONE (15:48)
[2021-11-19] MEDS ORDERED: GLYCOPYRROLATE 0.2 MG/ML VIAL ONE (16:16)
[2021-11-19] MEDS ORDERED: NEOSTIGMINE METHYLSULFATE 1 MG/ML 10ML VIAL ONE (16:16)
--- NOTE | 2021-11-19 16:18 | Operative Report ---
Post Operative Report Pre & Post Diagnosis Operation Date: 11/18/21 07:55 Pre-Op Diagnosis: Gallstone Pancreatitis, Acute Cholecystitis Post-Op Diagnosis: Gallstone Pancreatitis, Acute Cholecystitis Operation Date: 11/19/21 07:00 Pre-Op Diagnosis: PANCREATITIS Post-Op Diagnosis: CBD stone I identified the patient and participated in the time-out.: Yes Procedure Operation Date: 11/18/21 07:55 Actual Procedures p Laparoscopic Cholecystectomy(Not Applicable) - Donny Betancourt MD Operation Date: 11/19/21 07:00 Actual Procedures p Endoscopic Retrograde Cholangiopancreato - Corrine Barker MD Surgeon Corrine Barker MD Cotton Wringer rn medical surgical Estimated Blood Loss 0 Findings See Below (Choledocholithiasis, CBD stent placed) Specimens None Description of Procedure ERCP I attest to the content of the Intraoperative Record and any orders documented therein. Any exceptions are noted below.
--- NOTE | 2021-11-19 16:26 | GI REPORT ---
Patient Name: Monica Henderson Procedure Date: 11/19/2021 3:06 PM Date of : 1955 Admit Type: Inpatient Age: 66 Gender: Female Attending MD: Corrine Barker MD Procedure: ERCP Providers: Corrine Barker MD Referring MD: Mary Elam Md Indications: Evaluation and possible treatment of bile duct stone(s), Elevated liver enzymes Medicines: General Anesthesia Complications: No immediate complications. Estimated Blood Loss: Estimated blood loss: none. Procedure: Pre-Anesthesia Assessment: - Prior to the procedure, a History and Physical was performed, and patient medications, allergies and sensitivities were reviewed. The patient's tolerance of previous anesthesia was reviewed. - The risks and benefits of the procedure and the sedation options and risks were discussed with the patient. All questions were answered and informed consent was obtained. - Patient identification and proposed procedure were verified prior to the procedure by the physician and the nurse. The procedure was verified in the procedure room. - Pre-procedure physical examination revealed no contraindications to sedation. After obtaining informed consent, the scope was passed under direct vision. Throughout the procedure, the patient's blood pressure, pulse, and oxygen saturations were monitored continuously. The Duodenoscope was introduced through the mouth, and advanced to the duodenum and used to inject contrast into the bile duct. The ERCP was accomplished without difficulty. The patient tolerated the procedure well. Findings: A recovery manager film of the abdomen was obtained. Surgical clips, consistent with a previous cholecystectomy, were seen in the area of the right upper quadrant of the abdomen. The esophagus was successfully intubated under direct vision. The scope was advanced to a normal major papilla in the descending duodenum without detailed examination of the pharynx, larynx and associated structures, and upper GI tract. The upper GI tract was grossly normal. The ventral pancreatic duct was inadvertently cannulated with the short-nosed traction sphincterotome and guidewire. A 0.025 inch x 270 cm angled Visiglide wire was passed into the biliary tree. The CleverCut distal wire sphincterotome was passed over the guidewire and the bile duct was then deeply cannulated. Contrast was injected. I personally interpreted the bile duct images. Ductal flow of contrast was adequate. Image quality was adequate. Contrast extended to the main bile duct. Opacification of the main bile duct was successful. The maximum diameter of the ducts was 12 mm. Biliary sphincterotomy was made with a monofilament traction (standard) sphincterotome using ERBE electrocautery. There was no post-sphincterotomy bleeding. The biliary tree was swept with an 11.5 mm balloon starting at the bifurcation. Sludge was swept from the duct. One stone was removed. No stones remained. One 5 Fr by 9 cm plastic pancreatic stent with a single external pigtail and no internal flaps was placed into the ventral pancreatic duct. Clear fluid flowed through the stent. The stent was in good position. One 10 Fr by 7 cm plastic biliary stent with a single external flap and a single internal flap was placed into the common bile duct. Bile flowed through the stent. The stent was in good position. Indomethacin 100 mg was given via suppository to decrease the risk of post-ERCP pancreatitis (PEP). Impression: - Choledocholithiasis was found. Complete removal was accomplished by biliary sphincterotomy and balloon extraction. - One plastic pancreatic stent was placed into the ventral pancreatic duct. - One plastic biliary stent was placed into the common bile duct. Recommendation: - [facility]. - Repeat ERCP in 6 weeks to remove stent. - Return to referring physician. Corrine Barker MD 11/19/2021 4:25:55 PM This report has been signed electronically. Note Initiated On: 11/19/2021 3:06 PM Number of Addenda: 0 I attest to the content of the Intraoperative Record and orders documented therein, exceptions below {[id number]}
--- NOTE | 2021-11-19 16:33 | Fluoroscopy Report ---
FL ERCP biliary ductal CLINICAL HISTORY: EXPLORE DUCTS TECHNIQUE: 14 views were obtained with the C-arm in the OR with the above procedure. Total fluoroscop y time was 1 minute for seconds. Total skin dose was 13.1 mGy. Comparison: None available at the time of this dictation. FINDINGS/IMPRESSION: Intraoperative images were obtained of ERCP with stent placement. Please correlate with intraoperative fluoroscopy and operative report. ACT 112: Negative or not required by law. Electronically signed by: Asim Harding M.D. 11/19/2021 4:31 PM
--- NOTE | 2021-11-19 17:07 | Anesthesiology Progress Note ---
Date of Service November 19, 2021 Anesthesia Post Procedure Vital Signs Vital Signs: Temp Pulse Resp BP Pulse Ox O2 Del Method O2 Flow Rate 11/19/21 16:50 59 L 8 L 145/80 H 100 Nasal Cannula 2 11/19/21 16:40 64 14 151/77 H 99 Nasal Cannula 2 11/19/21 16:32 36.4 C L 78 17 158/86 H 98 Nasal Cannula 2 11/19/21 14:45 37.3 C 70 18 147/74 H 94 Room Air 11/19/21 07:37 36.7 C 70 16 115/70 97 Room Air 11/18/21 23:01 37.6 C H 80 18 107/58 L 94 Room Air 11/18/21 19:18 36.9 C 76 18 124/68 96 Room Air 11/18/21 18:08 37 C 77 16 147/68 H 96 Room Air 11/18/21 17:08 36.6 C 81 16 125/71 96 Room Air Pain Intensity Abdomen: Pain Intensity: 2 Transfer of Care Handoff Completed per policy Notes Mental Status: alert / awake / arousable Patient Amnestic to Procedure: Yes Nausea / Vomiting: adequately controlled Pain: adequately controlled Airway Patency, RR, SpO2: stable & adequate BP & HR: stable & adequate Hydration State: stable & adequate Anesthetic Complications: no major complications apparent
[2021-11-19] MEDS: MULTIVITAMIN TAB PO SCH (17:49)
[2021-11-19] MEDS: ASPIRIN 81 MG CHEW PO SCH (17:49)
[2021-11-19] MEDS: CHOLECALCIFEROL 1,000 UNITS 25 MCG TAB PO SCH (17:49)
[2021-11-19] MEDS: lisinopril 5 MG TAB PO SCH (17:50)
[2021-11-19] MEDS: METOPROLOL SUCC 25MG EXT REL TAB PO SCH (17:50)
[2021-11-19] MEDS: hydroCHLOROthiazide 25 MG TAB PO SCH (17:52)
[2021-11-20] MEDS: PIPERACILLIN/TAZOBACTAM 3.375 GM in DEXTROSE 5% 100 ML IV SCH ×2 (00:25→08:26)
[2021-11-20 07:48] LABS: Basophils # (auto) 0.05 K/uL (0-0.2); Basophils % (auto) 0.5 %; Eosinophils # (auto) 0.07 K/uL (0-0.50); Eosinophils % (auto) 0.6 %; Hematocrit (blood only) 42.5 % (34.1-44.9); Hemoglobin 14.1 g/dl (12.0-16.0); Immature Granulocytes # (auto) 0.02 K/uL (0.00-0.02); Immature Granulocytes % (auto) 0.2 %; Lymphocytes # (auto) 1.09 K/uL (1.2-3.4); Lymphocytes % (auto) 10.1 %; Mean Corpuscular Hemoglobin 29.3 pg (25.0-34.0); Mean Corpuscular Hgb Conc 33.2 g/dL (32.0-36.0); Mean Corpuscular Volume 88.2 fL (80.0-100.0); Mean Platelet Volume 10.5 fL (9.4-12.3); Monocytes # (auto) 0.91 K/uL (0.24-0.82); Monocytes % (auto) 8.4 %; Neutrophils # (auto) 8.63 K/uL (1.4-6.5); Neutrophils % (auto) 80.2 %; Platelet Count 524 K/uL (130-400); RDW Coefficient of Variation 13.1 % (11.5-14.5); RDW Standard Deviation 42.1 fL (36.4-46.3); Red Blood Count 4.82 M/uL (3.93-5.22); White Blood Count 10.77 K/ul (4.8-10.8)
[2021-11-20 08:19] LABS: Albumin Globulin Ratio 1.6 (0.9-2); Albumin Level 4.1 gm/dl (3.4-5.0); BUN Creatinine Ratio 14.3 (10-20); Bilirubin,Total 1.8 mg/dl (0.2-1.0); Calcium 9.4 mg/dl (8.5-10.1); Creatinine Clr Calc Pharmacy 57.4 ml/min; Est GFR (African American) 75.1 ml/min; Est GFR (Non-African American) 64.8 ml/min; Globulin 2.5 gm/dl (2.5-4.0); Potassium 3.5 mmol/L (3.5-5.1); Total Protein 6.6 gm/dl (6.0-8.3)
[2021-11-20] MEDS: ASPIRIN 81 MG CHEW PO SCH (08:26)
[2021-11-20] MEDS: CHOLECALCIFEROL 1,000 UNITS 25 MCG TAB PO SCH (08:26)
--- NOTE | 2021-11-20 09:31 | Gastroenterology Progress Note ---
Date of Service November 20, 2021 Assessment & Plan (1) Gallstone pancreatitis: Plan: Patient is a 66 years old female admitted for suspected gallstone pancreatitis. S/P cholecystectomy on 11/18 and ERCP on 11/19 with biliary sphincterectomy, choledocholithiasis removal and biliary + pancreatic stent placements. LFTs improving - Antibx coverage for 7-10 days - Avoid NSAIDs, ASA 5 days after sphincterectomy - Diet as tolerated - Trend LFTs - Repeat ERCP in 6-8 weeks time to remove stents - GI to sign off; pls recall prn Admission and Anticipated Discharge Date Admission Date: November 16, 2021 Supervising Physician Co-Signing Physician Notes I have seen and examined the patient with KATERINA Acuña whose note reflects our findings and plan. Subjective Pt denies any abd pain, n/v. Is passing flatus, no BM. Review of Systems Review of Systems: All systems reviewed & are unremarkable except as noted in HPI & below Constitutional: as per Subjective / HPI Respiratory: no cough and no dyspnea Cardiovascular: no chest pain, no lightheadedness and no edema Gastrointestinal: no abdominal pain, no heartburn, no nausea, no vomiting, no hematemesis, no pain with swallowing, no dysphagia, no cramping, no change in stools and no melena Physical Exam Constitutional: WD/WN, vitals as above well groomed, cooperative and comfortable Eyes: PERRL, conjunctivae normal, anicteric sclerae ENMT: external ear and nose normal, oropharynx normal Respiratory: normal respiratory effort, lungs clear to auscultation Cardiovascular: RRR, no murmur, no edema Gastrointestinal (Abdomen): normal bowel sounds, soft, nontender, no hepatosplenomegaly Lap kameron surgical sites covered with dressing, CDI Skin: no rashes, warm and dry no jaundice Psychiatric: A+Ox3, euthymic affect Lymphatic: no lymphedema Results & Data ([facility]) Vital Signs (Past 12 Hours) Vital Signs Temp Pulse Resp BP Pulse Ox O2 Del Method 11/20/21 07:30 36.7 C 69 16 135/84 97 Room Air
[2021-11-20] MEDS: MULTIVITAMIN TAB PO SCH (09:40)
[2021-11-20] MEDS: lisinopril 5 MG TAB PO SCH (09:40)
[2021-11-20] MEDS: METOPROLOL SUCC 25MG EXT REL TAB PO SCH (09:40)
--- NOTE | 2021-11-20 10:50 | Surgery Progress Note ---
Date of Service November 20, 2021 Assessment & Plan (1) Gallstone pancreatitis: (2) Acute cholecystitis: Plan POD # 1 s/p laparoscopic cholecystectomy -afebrile - minimal postop soreness - nausea controlled with meds - t. bili slight improvement scheduled for ERCP today - LFTs slight elevation Plan: Continue NPO for ERCP today Continue pain medication as needed Continue Zosyn Continue IV fluids Incentive spirometry Continue ambulation SCDs for DVT prophylaxis Will need further renal CT based on US results, advised patient medicine team will review but likely could be done as outpatient Dr. Betancourt has seen and examined pt agrees with above 11/20/2021 10 : 47AM DR. Betancourt F/U S/P lap kameron, POD 2 doing fine, tolerated diet, pt can be discharged home today, she can take a shower tomorrow, no heavy lifting > 20 LBS for 4 weeks, F/U me 2 weeks, , sign off today, Thanks, Admission and Anticipated Discharge Date Admission Date: November 16, 2021 Supervising Physician Co-Signing Physician Notes I performed a history and physical examination of the patient today, including specifically on physical exam - soft abdomen. I have discussed the patient's management with the advanced practitioner. Please refer to the nurse practitioner's note for the documented findings and plan of care. ERCP Patient was explained in detail regarding risks, benefits, limitations and alternatives of the above endoscopic procedure. Risks of intravenous sedation used for procedure were also explained. Risks include, but not limited to perforation, bleeding, infection, respiratory distress, cardiac arrest and . Patient is also aware about the possibility of missed lesion. Patient's questions were answered. The patient verbalized understanding the information and agreed to undergo the procedure. Subjective Pt denies any abd pain, n/v. Is passing flatus, no BM. 11/20/2021 10:45AM Dr. Betancourt F/U S/P lap kameron, POD 2, S/P ERCP, POD 1 pt is doing fine, no significant abdominal pain, no nausea, no vomiting, no fever, Physical Exam Constitutional: WD/WN, vitals as above Eyes: PERRL, conjunctivae normal, anicteric sclerae Neck: trachea midline, no thyromegaly Respiratory: normal respiratory effort, lungs clear to auscultation Cardiovascular: RRR, no murmur, no edema Gastrointestinal (Abdomen): soft, NT< ND, BS +, all incisions intact, no redness, Musculoskeletal: no cyanosis or clubbing, extremities motor strength 5/5 Neurologic: patellar DTR's 2+ bilat, sensation intact Psychiatric: A+Ox3, euthymic affect Results & Data ([facility]) Vital Signs (Past 12 Hours) Vital Signs Temp Pulse Resp BP Pulse Ox O2 Del Method 11/20/21 07:30 36.7 C 69 16 135/84 97 Room Air Laboratory Results Abnormal lab results 11/20/21 11/20/21 Range/Units 07:16 07:16 Plt Count 524 H (130-400) K/uL Neut # (Auto) 8.63 H (1.4-6.5) K/uL Lymph # (Auto) 1.09 L (1.2-3.4) K/uL [place] # (Auto) 0.91 H (0.24-0.82) K/uL Carbon Dioxide 34 H (21-32) mmol/L Total Bilirubin 1.8 H (0.2-1.0) mg/dl AST 56 H (13-39) U/L ALT 90 H (7-52) U/L
--- NOTE | 2021-11-20 15:43 | Discharge Summary ---
Date of Service November 20, 2021 Admission HPI Per Admitting Provider History obtained from patient and records. Medical history significant for chronic systolic heart failure (EF 45 to 49% on outpatient stress echo 2015 ), hypertension, hyperlipidemia, ventricular ectopic beats, cholelithiasis. Patient experience intense right upper quadrant pain last September 2020. Outpatient right upper quadrant ultrasound showed 1. Gallbladder sludge and tiny stones without evidence of acute cholecystitis or choledocholithiasis. 2. Hepatic steatosis. 3. Probable subcentimeter right renal cyst. Surgery consultation recommended by outpatient provider. Last week, patient had recurrence of abdominal pain with nausea symptoms without fever, chills. She went to [facility] ER but left waiting room after she noticed relief of discomfort. Abdominal pain recurred yesterday afternoon with nausea, no emesis. No fever, no chills. No chest pain, no shortness of breath. Zosyn administered at the ER. 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 Allergies Admission Exam Per Admitting Provider GENERAL: Comfortable, pleasant, no respiratory distress SKIN: Normal color, warm HEENT: Bespectacled, [place] palpebral conjunctivae, no ptosis, dry buccal mucosa NECK : Supple, no tenderness CHEST : CTA, no tenderness HEART : RRR, no obvious murmurs ABDOMEN: Some distention, minimal right upper quadrant tenderness EXTREMITIES : No LE swelling/tenderness, no other conspicuous deformities noted NEUROLOGIC : Coherent, no facial asymmetry, no other gross focality Principal Diagnosis Gallstone pancreatitis status post ERCP on 11/19 Acute cholecystitis status post laparoscopic cholecystectomy on 11/18 Discharge Exam GENERAL: Alert and oriented x3. NAD, on RA. HEENT: No pallor, no icterus. Pupils equal, round and reactive to light. Oral mucosa moist. NECK: No JVD, no neck masses. HEART: S1 and S2 heard. Regular rate and rhythm. No murmur, no gallop. RESPIRATORY SYSTEM: Normal AP diameter. No accessory muscle use. No wheezing, no crackles. ABDOMEN: bandage over surgical site. soft, CENTRAL NERVOUS SYSTEM: No facial droop. Speech is clear. Obeys simple commands. Moves extremities. EXTREMITIES: No edema, no erythema seen. Discharge Data Allergies Allergy/AdvReac Type Severity Reaction Status Date / Time No Known Allergies Allergy Unverified 11/16/21 00:19 Consultations 11/15/21 23:15 ED Decision to Admit Stat 11/16/21 03:19 Consult Gastroenterology Routine Consult General Surgery Routine Procedures Performed Operation Date: 11/18/21 07:55 Actual Procedures p Laparoscopic Cholecystectomy(Not Applicable) - Donny Betancourt MD Operation Date: 11/19/21 07:00 Actual Procedures p Endoscopic Retrograde Cholangiopancreatogram - Corrine Barker MD Ordered Studies 11/15/21 20:35 US gallbladder Stat 11/16/21 01:16 MR MRCP Routine 11/19/21 09:00 US Renal Bladder [US renal/blad retro comp] Routine 11/19/21 15:00 FL ERCP biliary ductal Routine Hospital Course (1) Gallstone pancreatitis: (2) Acute cholecystitis: Plan 66-year-old lady with chronic systolic heart failure [EF 45 to 49% on outpatient stress echo 2015], HTN, HLD, ventricular ectopic beats, cholelithiasis presented 11/15 to our ED with recurrent abdominal pain associated with nausea in the last week [employer]. Abdominal pain recurred in the afternoon of the day of arrival with nausea/no emesis and hence patient presented to the ED. Right upper quadrant ultrasound showed distended gallbladder with numerous gallstones. Lipase was elevated to 2138. Patient was admitted to general medical floor. She was started on IV antibiotics with Zosyn, IV fluids. General surgery and GI were consulted. Patient underwent laparoscopic cholecystectomy on 11/18. On , patient underwent ERCP with stent placement. Patient was discharged home on 3 more days of ciprofloxacin and metronidazole. MRCP during the admission showed 1.2 cm lesion in her left kidney. Renal ultrasound was done to confirm the finding. Patient was recommended to have outpatient urology follow-up. Patient was also provided follow-up instruction to see surgery in 2 weeks and GI for stent removal in 4 to 6 weeks Total Time Total Time Spent Total Time Spent (In Minutes): 35 Total Time Includes: Examination of the Patient, Discharge Planning, Medication Reconciliation, Communication With Other Providers and Other Discharge Plan Discharge Items Patient Disposition: Home - Self-Care Reason For Visit: PANCREATITIS Discharge Diagnosis: Acute biliary pancreatitis Acute cholecystitis Activity: Resume your previous activity Non-emergency contact: Primary Care Provider Call non-emergency contact if: you have any medication questions and your symptoms worsen Follow-up/Referrals: Susan Trinidad PA-C [Primary Care Provider] - (Date & Time 11/26/2021 11:00 AM Provider Yasir Andersen III, MD Department [facility] [place] ) Donny Betancourt MD [Physician] - 12/04/21 10:00 am Diet: Regular Addtl Attending Provider Instructions: You were admitted to the hospital with inflammation of her gallbladder and pancreas. You are prescribed following antibiotics to be taken for next 3 days: 1) Take ciprofloxacin 500 mg twice daily 2) Take Flagyl 500 mg 3 times a day. Stop taking aspirin for 1 week. You can restart taking aspirin next Thursday. Please follow-up with the surgeon ( ) in 2 weeks. His office number is . Please follow-up with GI Doctor. You will need repeat ERCP in 6 to 8 weeks time to remove the stents. MRI done during the hospitalization showed 1.2 cm lesion in the superior pole of the left kidney. Please follow-up with your primary care doctor and obtain a urology referral for further evaluation. Addtl Nursing Home Assistant Administrator Provider Instructions: Post-Surgical ~Discharge Instructions Activity Recommendations: - lifting limitation: (20 pounds for 4 weeks), - exercise/sex/sports limit: (nonstrenuous for 2 weeks), - driving or machine use limit: (none for 1 week or no longer having pain or taking pain medication), - Shower/bathe limit: (may shower beginning tomorrow) Diet: - Resume previous diet SPECIAL CARE INSTRUCTIONS: - May shower in 24 hours. Remove outer dressing and shower. Let water run over area and pat dry. - Leave steri strips on for one week. - Call the surgeon's office with any questions or concerns - - (ex. temperature higher than 101 degrees F, excessive bleeding or pain). MEDICATIONS: - Resume previous medications unless instructed otherwise by your surgeon. - May take extra strength Tylenol as needed for mild to moderate pain - Avoid NSAIDS (Ibuprofen, Motrin, Aleve, Aspirin) for 7 days given ERCP procedure FOLLOW UP VISIT: - If not already scheduled, please call the office to schedule a two week follow-up appointment. Office number Pending Studies at Discharge: Yes (gallbladder pathology, will be reviewed at follow-up visit) Stand-Alone Forms: My [facility], Smoking Cessation Medications and DC Order Prescriptions: New ciprofloxacin HCl [Cipro] 500 mg tablet 500 mg PO BID 3 Days Qty: 6 0RF metronidazole 500 mg tablet 500 mg PO TID 3 Days Qty: 9 0RF Continued hydrochlorothiazide 12.5 mg capsule 12.5 mg PO Q OTHER DAY metoprolol succinate 25 mg tablet extended release 24 hr 37.5 mg PO DAILY Rx Instructions: Take 1 & 1/2 tab lisinopril 2.5 mg tablet 2.5 mg PO DAILY ibandronate 150 mg tablet 150 mg PO MO Rx Instructions: Take with 8 oz water, 1 hr before 1st meal, remain upright for 60 min. cholecalciferol (vitamin D3) [Vitamin D3] 50 mcg (2,000 unit) Tablet 50 mcg PO DAILY multivitamin Tablet 1 tab PO DAILY Discontinued aspirin [Baby Aspirin] 81 mg Tablet,Chewable 81 mg PO DAILY Discharge Orders: Discharge Order (Routine); Ordered 11/20/21 Ordered By: Silverio Herzog Admission Data Admit Date/Time: 11/16/21 01:14 Attending Provider: Silverio Herzog Admit Provider: Hoang Zelaya Primary Care Provider: Susan Trinidad Other Providers: Hoang Zelaya ; Donny Betancourt ; Sena New ; Derrick Rushing ; Fern Leon ; Ruth Ann Bernardo ; Mary Conde ; Lisseth Pittman ; Saliemelina,Eric ; Candida Anderson ; Lizzie Hebert ; Iggy aSlazar ; Mohsen Orta ; Brinda Baugh ; Melquiades Kimbrough ; Caesar Perez ; Janes Knutson ; Lona Eubanks ; Belinda Choi ; Catia Underwood ; Seema Sena ; Corrine Barker ; Michael Thompson ; Bam Babb ; Tanner Claros ; Melissa Townsend Other Interventions: Discharge Summary Assessment (RN) Last Done: 11/20/21 13:09
== END 2021-11-20 13:30 | disposition home or self-care (01) | DRG 417 ==
LOC: ED 19:08 → SUATTDRO 11-16 01:14 → 3N 11-16 01:14